=== PATIENT | male | born 1955 | race Caucasian/White ===

== ENCOUNTER → 2020-03-29 15:12 | Outpatient (BNVA) | payer BC, SELFPAY | PROVIDERS: PCP Internal Medicine; Visit Provider Internal Medicine | DX: Z76.89 Persons encountering health services in other specified circumstances (principal) ==

== ENCOUNTER → 2020-04-17 14:53 | Outpatient (REF) | payer BC, SELFPAY ==
--- NOTE | 2020-04-17 15:03 | CA_ITS ---
Transthoracic Echocardiogram Patient (Last, First, Middle): Ney George M Gender: Male Date of : 1955 Age: 64 Procedure Date: 04/17/2020 Procedure Type: Transthoracic Echocardiogram Location: OP Height: 170.18 cm Weight: 95.26 kg BSA: 2.06 m2 Heart Rate: bpm BP: 122 / 80 mmHg Cupola Liner Helper: Referring MD: Curt Martinez MD Symptoms: Z95.3 - Presence of xenogenic heart valve Study Quality: Technically Difficult ECG Rhythm: Sinus Conclusions: - The left ventricular systolic function is normal. The visually estimated ejection fraction is between 60-65%. - Based on history, bioprosthetic aortic valve. Appears to have normal function based on gradients. - There is a small loculated pericardial effusion overlying the right atrium. Findings Left Ventricle Normal left ventricular cavity size. There is mildly increased left ventricular wall thickness. The left ventricular systolic function is normal. The visually estimated ejection fraction is between 60-65%. Regional wall motion abnormalities can not be excluded due to suboptimal endocardial definition. Diastolic function is normal for age. Right Ventricle Normal right ventricular cavity size and systolic function. Atria The left atrium is mildly dilated. The right atrium is normal in size. Aortic Valve The prosthetic aortic valve appears to be functioning normally. The aortic valve was not well visualized. The peak aortic velocity is 2.27 m/s with a calculated peak gradient of 21 mmHg. The mean gradient is 11 mmHg. The aortic valve area is 2.02 cm2. By history, bioprosthetic aortic valve. No significant regurgitation. Mitral Valve The mitral valve appears normal. There is trace mitral valve regurgitation. There is no mitral valve stenosis. Pulmonic Valve The pulmonic valve was not well visualized. Tricuspid Valve Normal tricuspid valve structure. There is trace tricuspid valve regurgitation. The pulmonary artery systolic pressure is normal. Great Vessels The aorta was not well visualized. Venous The inferior vena cava is normal in size and collapses greater than 50% with inspiration. Pericardium/Pleural There is a small loculated pericardial effusion overlying the right atrium. There are no definitive echocardiographic findings of tamponade physiology. Prior Study Comparison Changes noted compared to prior study dated: 10/19/2019. s/p AVR Measurements 2D Linear Measurements IVSd: 1.28 0.6-0.9/0.6-1.0 cm LVIDd: 3.58 3.9-5.3/4.2-5.9 cm LVIDd Index: 1.74 2.4-3.2/2.2-3.1 cm/m2 LVIDs: 2.50 2.0-3.6 cm LVPWd: 1.29 0.7-1.1 cm Ao Root: 3.00 2.1-3.5 cm LA Diam: 3.90 2.7-3.8/3.0-4.0 cm LAIDs Index: 1.89 1.5-2.3 cm/m2 LV Mass: 194.19 67-162/88-224 g LV Mass Index: 94.27 43-95/49-115 g/m2 LVOT Diam: 2.00 3.0+(-)1.3 cm 2D Systolic Function EF 4C: 54.80 >55% EF 2C: 67.60 >55% Mitral Valve MV Pk E: 0.77 MV PK A: 0.97 MV Decel Time: 218.00 E/A: 0.80 E'Lateral: 15.50 E'Medial: 4.93 E/E' Med: 15.50 E/E' Lat: 4.90 PHT: 64.00 MVA PHT: 3.44 Decel Sheridan: 3.51 Aortic Valve AoV Pk Lit: 2.27 AoV Mn Lit: 1.55 AoV VTI: 0.48 AoV Pk Grad: 21.00 Aov Mn Grad: 11.00 RABIA Cont.VTI: 2.02 LVOT LVOT Pk Lit: 1.45 LVOT Mn Lit: 0.90 LVOT VTI: 0.31 LVOT Pk Grad: 8.00 LVOT Mn Grad: 4.00 LVOT Diam: 2.00 LVOT Area: 3.14 Diastolic Function MV Pk E: 0.77 MV Pk A: 0.97 E/A: 0.80 E'Medial: 4.93 E/E' Med: 15.50 E' Laterial: 15.50 E/E' Lat: 4.90 Tricuspid Valve TR Pk Lit: 2.05 TR Pk Grad: 17.00 RA Press: 3.00 RVSP: 20.00 Great Vessels Aorta Ao Root-2D: 3.00 2.0-3.7 cm Pulmonary Valve PV Pk Lit: 1.02 Peak PV Grad: 4.00 Updated in Other Vendor System with Status of Final Curt Martinez MD electronically signed on 04/18/2020 4:45:47 PM with status of Final
== END ==
LOC: HO.CARD 14:53
PROVIDERS: PCP Internal Medicine; Visit Provider Internal Medicine
DX: Z95.3 Presence of xenogenic heart valve (principal)
CPT/HCPCS: 93306

== ENCOUNTER → 2020-06-18 15:14 | Outpatient (BNVA) | payer BC, SELFPAY | PROVIDERS: PCP Internal Medicine; Visit Provider Internal Medicine ==

== ENCOUNTER 2020-09-17 12:50 | Outpatient (REF) | payer BC, SELFPAY ==
[2020-09-17 14:11] LABS: MANUAL DIFF FLAG NO
[2020-09-17 14:20] LABS: Glucose Urine UA NEG (NEG); Leukocyte Esterase Urine NEG (NEG); Nitrite Urine NEG (NEG); PH 6.5 (5.0-8.0); Urine Blood NEG (NEG); Urine Ketones NEG (NEG); Urine Protein TRACE MG/DL (NEG-TRACE)
[2020-09-17 14:22] LABS: Basophils Absolute Auto 0.1 X10*3/uL (0.0-0.2); Basophils Percent Auto 0.8 % (0-2); Eosinophils Absolute Auto 0.2 X10*3/uL (0.0-0.4); Eosinophils Percent Auto 3.3 % (0-4); Hematocrit 46.1 % (42-52); Hemoglobin 15.4 g/dl (14.0-18.0); Imm Gran Abs Auto 0.02 X10*3/uL (0.00-0.03); Imm Gran Pct Auto 0.3 % (0.0-0.4); Lymphocytes Percent Auto 29.9 % (20-40); Mean Corpuscular HGB Conc 33.4 g/dl (31.0-36.0); Mean Corpuscular Volume 89.7 fL (80-98); Mean Platelet Volume 11.5 fL (9.4-12.4); Monocytes Absolute Auto 0.7 X10*3/uL (0.1-1.2); Monocytes Percent Auto 10.3 % (2-11); Neutrophils Absolute Auto 3.7 X10*3/uL (2.0-8.3); Neutrophils Percent Auto 55.4 % (45-73); Platelet Count 192 X10*3/uL (160-400); Red Blood Count 5.14 X10*6/uL (4.60-5.80); Red Cell Distribution Width 12.6 % (11.0-16.0); White Blood Count 6.6 X10*3/uL (4.8-10.8)
[2020-09-17 14:25] LABS: Appearance Urine CLEAR; Color Urine YELLOW
[2020-09-17 14:29] LABS: Estimated Average Glucose 146 mg/dL; Hemoglobin A1c % 6.7 %
[2020-09-17 14:32] LABS: Alanine Aminotransferase 45 U/L (0-40); Albumin Level 4.3 g/dL (3.5-5.0); Alkaline Phosphatase 120 U/L (39-117); Anion Gap 13 (12-20); Aspartate Amino Transferase 32 U/L (5-37); Bilirubin Total 1.3 mg/dL (0.0-1.0); Blood Urea Nitrogen 12 mg/dL (9-16); Calcium 9.3 mg/dL (8.4-10.2); Carbon Dioxide 28 mmol/L (22-29); Chloride 105 mmol/L (96-108); Cholesterol 110 mg/dL; Estimated Glomerular Filt Rate > 60; Glucose Random 96 mg/dL (60-115); HDL Cholesterol 35 mg/dL; LDL Cholesterol Calculated 46 mg/dl; Potassium 3.6 mmol/L (3.3-5.1); Sodium 142 mmol/L (135-145); Total Protein 6.5 g/dL (6.5-8.0); Triglycerides 148 mg/dL
[2020-09-17 14:47] LABS: Microalbum/Creatinine Ratio Ur 154.1 ug/mg cr
[2020-09-17 14:54] LABS: Free T4 (Free Thyroxine) 1.02 ng/dL (0.71-1.85); Prostate Specific Antigen Scr 1.35 ng/mL (<0.05-4.0); Thyroid Stimulating Hormone 0.44 uIU/mL (0.32-4.0)
[2020-09-17 14:55] LABS: RBC Urine 0-2 /HPF (0); WBC Urine 0 /HPF (0-4)
[2020-09-17 14:56] LABS: Amorphous Sediment Urine TRACE /LPF
[2020-09-17 15:09] LABS: Folate 19.7 ng/mL (> or = 4.0); Vitamin B12 424 pg/mL (200-900)
== END 2020-09-17 12:51 | disposition home or self-care (01) ==
LOC: HO.LAB 12:50
PROVIDERS: PCP Internal Medicine; Visit Provider Internal Medicine
DX: I25.10 Atherosclerotic heart disease of native coronary artery without angina pectoris (principal); E11.65 Type 2 diabetes mellitus with hyperglycemia; E78.00 Pure hypercholesterolemia, unspecified
CPT/HCPCS: 36415; 80053; 80061; 81001; 82043; 82607; 82746; 83036; 84153; 84439; 84443; 85025

== ENCOUNTER 2020-09-25 16:57 | Outpatient (REF) | payer BC, SELFPAY ==
[2020-09-25 18:30] LABS: Anion Gap 14 (12-20); Blood Urea Nitrogen 18 mg/dL (9-16); Calcium 9.9 mg/dL (8.4-10.2); Carbon Dioxide 28 mmol/L (22-29); Chloride 105 mmol/L (96-108); Estimated Glomerular Filt Rate > 60; Glucose Random 75 mg/dL (60-115); Potassium 4.2 mmol/L (3.3-5.1); Sodium 143 mmol/L (135-145)
[2020-09-26 08:11] LABS: HBc Num1 0.05 S/CO (0.00-0.79); Hepatitis B Core Antibody Nonreactive (Nonreactive); ~Hepatitis B Surface Antibody NONREACTIVE (Nonreactive)
[2020-09-26 08:34] LABS: HBsAGNum1 0.18 S/CO (0.00-0.99); Hepatitis B Surface Antigen Negative (Negative); ~HepC Num1 0.07 S/CO (0.00-0.79); ~Hepatitis C Antibody Nonreactive (Nonreactive)
== END 2020-09-25 16:58 | disposition home or self-care (01) ==
LOC: HO.LAB 16:57
PROVIDERS: PCP Internal Medicine; Visit Provider Internal Medicine
DX: I10 Essential (primary) hypertension (principal); R79.89 Other specified abnormal findings of blood chemistry; R94.5 Abnormal results of liver function studies
CPT/HCPCS: 36415; 80048; 86704; 86706; 86803; 87340

== ENCOUNTER 2020-11-13 08:02 | Outpatient (REF) | payer BC, SELFPAY ==
--- NOTE | ~2020-11-13 | US_ITS ---
EXAMINATION: US ABDOMEN LIMITED CLINICAL INFORMATION: Elevated LFTs. COMPARISON: None TECHNIQUE: Real-time imaging of the right upper quadrant abdominal viscera. FINDINGS: PANCREAS: There is a 3 x 2.9 x 2.8 cm simple cyst in the head of the pancreas. The pancreas appears heterogeneous in echotexture. The main pancreatic duct does not appear dilated. LIVER: Liver echotexture is increased probably representing fatty infiltration. The liver is slightly enlarged. The liver contour is normal. No focal hepatic lesion. There is no intrahepatic biliary duct dilatation seen. GALLBLADDER: Normal. The gallbladder is physiologically distended without evidence of stones, sludge, polyps, wall thickening or pericholecystic fluid. COMMON BILE DUCT: Normal in caliber measuring 0.41 cm in diameter. RIGHT KIDNEY: There are multiple small echogenic foci in the right kidney questionable for small calcifications.. No hydronephrosis or focal parenchymal lesions. The kidney measures 12.1 cm in maximum dimension. FREE FLUID: None. US/US abdomen limited IMPRESSION: 3 cm simple appearing cyst in the head of the pancreas. Pancreas appears heterogeneous. Enlarged echogenic liver probably representing fatty infiltration. Question small right renal calcifications.
== END 2020-11-13 08:03 | disposition home or self-care (01) ==
LOC: HO.US 08:02
PROVIDERS: Visit Provider Internal Medicine
DX: R79.89 Other specified abnormal findings of blood chemistry (principal)
CPT/HCPCS: 76705

== ENCOUNTER 2020-11-26 20:33 | Emergency (ER) | payer BC, SELFPAY ==
--- NOTE | ~2020-11-26 | CT_ITS ---
EXAMINATION: CT HEAD WITHOUT CONTRAST CLINICAL INFORMATION: Fall COMPARISON: CT head 01/29/2008 TECHNIQUE: Contiguous axial imaging was performed from the skull base to vertex without intravenous administration of contrast. Coronal and sagittal reformatted images are performed at the CT scanner. [This CT examination was performed using dose optimization techniques as appropriate, variously including the following: *Automated exposure control *Adjustment of mA and/or kV according to patient size (this includes techniques or standardized protocols for targeted exams where dose is matched to indication/reason for exam; i.e. extremities or head) *Use of iterative reconstruction technique] DLP: 727 mGy-cm. FINDINGS: There is no evidence of acute intracranial hemorrhage or territorial infarction. No abnormal mass-effect or midline shift is seen. Sanders to white matter differentiation is well preserved. No extra-axial fluid collections are identified. The ventricles are normal in size. There is no abnormal attenuation within the brain parenchyma. There is no osseous abnormality. The mastoid air cells and visualized portions of the paranasal sinuses are well-aerated. CT/CT head/brain wo con IMPRESSION: No acute intracranial pathology.
--- NOTE | ~2020-11-26 | XR_ITS ---
EXAMINATION: XR LUMBOSACRAL SPINE CLINICAL INFORMATION: Fall. COMPARISON: Lumbar spine 04/03/2016 TECHNIQUE: Three views of the lumbosacral spine. FINDINGS: No fracture. Lumbar vertebrae have normal height and normal alignment. No spondylolysis or spondylolisthesis. There is multilevel degenerative spondylosis. There are vertebral endplate spurs and facet joint arthrosis similar to prior study of 04/03/2016. There are vascular calcifications of the aorta without aneurysm. There is no radiopaque urinary calculus. Nonobstructive bowel pattern. XR/XR lumbar spine 2-3V IMPRESSION: No acute abnormality lumbar spine. Degenerative spondylosis of lumbar spine.
[2020-11-26 20:40] VITALS: BP 181/83; PULSE 74; RESP 18; TEMP 36.7; O2SAT 96; BMI 32.2
--- NOTE | 2020-11-26 23:07 | ED_ITS ---
HPI - Fall General Chief Complaint: Fall Stated Complaint: fall Time Seen by Provider: 11/26/20 23:07 Source: patient Mode of arrival: ambulatory Limitations: no limitations History of Present Illness HPI Narrative: patient was pushing a bike slipped and fell landed on his head and the right side complaining of pain on the left back mild headache no nausea no vomiting no loss of consciousness patient is on Plavix able to ambulate to the ER no bladder or bowel involvement no paresthesia no significant pain in the back in past Related Data Home Medications Medication Instructions Recorded Confirmed aspirin 81 mg tablet,delayed 81 mg PO DAILY 03/19/20 09/25/20 release atorvastatin 80 mg tablet 80 mg PO DAILY 03/19/20 09/25/20 melatonin 3 mg capsule 3 mg PO BEDTIME PRN 03/19/20 09/25/20 multivitamin 1 tab PO DAILY 03/19/20 09/25/20 Previous Rx's Medication Instructions Recorded amlodipine 10 mg tablet 10 mg PO DAILY #90 tab 03/15/20 metoprolol tartrate 50 mg tablet 50 mg PO BID #180 tab 06/18/20 blood pressure monitor #1 ea 06/20/20 glimepiride 4 mg tablet 4 mg PO QAM #90 tab 07/05/20 alprazolam 0.25 mg tablet 0.25 mg PO BID #30 tab 09/25/20 clopidogrel 75 mg tablet 75 mg PO DAILY #90 tab 09/25/20 lisinopril 40 mg tablet 40 mg PO DAILY #90 tab 09/25/20 metformin 1,000 mg tablet 1,000 mg PO BID 90 Days #180 tab 10/03/20 sertraline 25 mg tablet 25 mg PO DAILY #90 tab 10/11/20 cyclobenzaprine 10 mg PO Q8H #20 tab 11/27/20 oxycodone 5 mg PO Q6H PRN #20 tab 11/27/20 Allergies Allergy/AdvReac Type Severity Reaction Status Date / Time Influenza Virus Vaccines Allergy Intermediate Unknown Verified 11/26/20 20:39 Review of Systems Review of Systems: Yes all other systems are reviewed and are negative [facility] Past Medical History Medical History Anxiety and depression Aortic stenosis Atherosclerotic cardiovascular disease CAD (coronary artery disease) Essential hypertension Glaucoma Hypercholesterolemia Obesity Obstructive sleep apnea Tobacco abuse Type 2 diabetes mellitus with hyperglycemia Surgical History Aortic valve replaced History of lumbar surgery Status post aortic valve replacement with bioprosthetic valve Status post aorto-coronary artery bypass graft Family History Family History Father CVD (cardiovascular disease) Cerebral hemorrhage Mother Medical history unknown Social History Social History Years Smoked: stopped 01/2020 Advance Directives: No Advance Directives Information Provided: No Physical Exam Vital Signs: Vital Signs: Last Vital Signs Temp 98.1 F 11/26/20 20:40 Pulse 68 11/26/20 23:10 Resp 16 11/26/20 23:10 BP 190/86 H 11/26/20 23:10 Pulse Ox 96 11/26/20 23:10 Body Mass Index 32.2 Appearance: Alert. Oriented X3. No acute distress. Eyes: PERRLA, No Nystagmus HEENT: Pharynx normal. Oral Mucosa moist soft tissue swelling right forehead Neck: Normal inspection. Neck supple. CVS: Normal heart rate and rhythm. Pulses normal. Respiratory: No respiratory distress. Equal air entry bilateral, no wheezing/rales/rhonchi Abdomen: Soft and nontender. Bowel sounds are present, no mass palpable, no CVA tenderness Skin: Skin warm and dry. Normal skin color. Normal skin turgor. Extremities: No lower extremity edema. No calf tenderness abrasion right forearm back: diffuse lumbar paraspinal tenderness specially on the left side no focal spinal tenderness no deformity good range of movement no saddle sensory loss, SLR negative bilateral Neuro: Oriented X 3. No motor deficit. No sensory deficit.No cerebellar signs , cranial nerves II-XII intact MDM - Fall MDM Narrative Medical decision making narrative: patient's CT scan head is negative lumbar spine x-ray also negative patient feeling better after oxycodone and Flexeril discharge him home Discharge Plan Discharge Clinical Impression: Minor closed head injury Acute lumbar myofascial strain Qualifiers: Encounter type: initial encounter Qualified Code(s): S39.012A - Strain of muscle, fascia and tendon of lower back, initial encounter Patient Disposition: Home, Self-Care Instructions: Head Injury (ED), Acute Low Back Pain (ED) Additional Instructions: rest at home Pain medication as prescribed follow with PCP if not better Prescriptions: New cyclobenzaprine 10 mg tablet 10 mg PO Q8H Qty: 20 RF: 0 oxycodone 5 mg tablet 5 mg PO Q6H PRN (Reason: Pain (Scale Score 7-10)) Qty: 20 RF: 0 No Action amlodipine 10 mg tablet 10 mg PO DAILY Qty: 90 RF: 3 glimepiride 4 mg tablet 4 mg PO QAM Qty: 90 RF: 2 metformin 1,000 mg tablet 1,000 mg PO BID 90 Days Qty: 180 RF: 1 sertraline 25 mg tablet 25 mg PO DAILY Qty: 90 RF: 3 aspirin [Adult Aspirin Regimen] 81 mg tablet,delayed release (DR/EC) 81 mg PO DAILY RF: 0 multivitamin Tablet 1 tab PO DAILY RF: 0 melatonin 3 mg capsule 3 mg PO BEDTIME PRNRF: 0 atorvastatin 80 mg tablet 80 mg PO DAILY RF: 0 lisinopril 40 mg tablet 40 mg PO DAILY Qty: 90 RF: 2 clopidogrel 75 mg tablet 75 mg PO DAILY Qty: 90 RF: 2 alprazolam 0.25 mg tablet 0.25 mg PO BID Qty: 30 RF: 0 metoprolol tartrate 50 mg tablet 50 mg PO BID Qty: 180 RF: 4 (DME) blood pressure monitor Kit See Rx Instructions .ROUTE .MEDSUPPLY Qty: 1 RF: 0
[2020-11-26 23:10] VITALS: BP 190/86; PULSE 68; RESP 16; O2SAT 96
[2020-11-26] MEDS: oxyCODONE HCl Immed Release 5 MG TABLET 10 MG PO (23:21)
[2020-11-26] MEDS: Cyclobenzaprine HCl 10 MG TABLET PO (23:21)
[2020-11-27 00:50] VITALS: BP 168/99; PULSE 75; RESP 16; O2SAT 96
--- NOTE | 2020-11-27 01:02 | PC.NURSE ---
PT AMBULATORY WITH A SLOW STEADY GAIT, OBVIOUS DISCOMFORT TO LOWER BACK. PT HAS SLIGHT ABRASION TO RIGHT FOREHEAD AND LOWER RIGHT ARM. PT UNDERSTANDS TO REFRAIN FROM DRIVING AND ALCOHOL CONSUMPTION WHILE ON RX MEDICATIONS.
== END 2020-11-27 01:03 | disposition home or self-care (01) ==
PROVIDERS: Emergency Provider Internal Medicine; PCP Internal Medicine
DX: S39.012A Strain of muscle, fascia and tendon of lower back, initial encounter (principal); S09.90XA Unspecified injury of head, initial encounter; I10 Essential (primary) hypertension; E11.9 Type 2 diabetes mellitus without complications; I35.0 Nonrheumatic aortic (valve) stenosis; I25.10 Atherosclerotic heart disease of native coronary artery without angina pectoris; Z79.02 Long term (current) use of antithrombotics/antiplatelets; Z79.82 Long term (current) use of aspirin; Z79.899 Other long term (current) drug therapy; W01.0XXA Fall on same level from slipping, tripping and stumbling without subsequent striking against object, initial encounter; Y93.9 Activity, unspecified; Y92.9 Unspecified place or not applicable; Y99.9 Unspecified external cause status
CPT/HCPCS: 70450; 72100; 99284

== ENCOUNTER → 2021-01-23 14:54 | Outpatient (BNVA) | payer BC, SELFPAY | PROVIDERS: PCP Internal Medicine; Referring Provider Internal Medicine; Visit Provider Internal Medicine ==

== ENCOUNTER → 2021-04-03 12:50 | Outpatient (BNVA) | payer OTHER, SELFPAY | PROVIDERS: PCP Internal Medicine; Visit Provider Physician Assistant | DX: L24.5 Irritant contact dermatitis due to other chemical products (principal); L03.114 Cellulitis of left upper limb; L03.113 Cellulitis of right upper limb; L03.011 Cellulitis of right finger | CPT/HCPCS: 99203 ==

== ENCOUNTER → 2021-04-05 11:47 | Outpatient (BNVA) | payer OTHER, SELFPAY | PROVIDERS: PCP Internal Medicine; Visit Provider Physician Assistant | DX: L24.5 Irritant contact dermatitis due to other chemical products (principal); L03.114 Cellulitis of left upper limb; L03.113 Cellulitis of right upper limb | CPT/HCPCS: 99213 ==

== ENCOUNTER 2021-05-04 09:52 | Emergency (ER) | payer BC, SELFPAY ==
--- NOTE | ~2021-05-04 | XR_ITS ---
EXAMINATION: XR CHEST CLINICAL INFORMATION: Cough COMPARISON: None TECHNIQUE: Frontal view of the chest was obtained. FINDINGS: No significant abnormality is noted involving the heart, lungs, mediastinum, bony thorax or soft tissues. XR/XR chest 1V IMPRESSION: Unremarkable examination.
[2021-05-04 10:15] VITALS: BP 204/98; PULSE 97; RESP 18; TEMP 36.9; O2SAT 96; BMI 32.1
[2021-05-04 10:48] LABS: COVID-19 Test Negative (Negative); IDNOW Serial# 9DD0AD1C
[2021-05-04 12:17] VITALS: BP 198/96; PULSE 86
--- NOTE | 2021-05-04 12:33 | ED.URI ---
HPI - URI/Sore Throat General Chief Complaint: Upper Respiratory Symptoms Stated Complaint: sore throat congested Time Seen by Provider: 05/04/21 10:29 Source: patient Mode of arrival: ambulatory Limitations: no limitations History of Present Illness HPI Narrative: 65-year-old male who has a past medical history of obesity and is a smoker with multiple medical problems which include hypercholesterolemia, aortic stenosis with bioprosthetic valve, coronary artery disease, anxiety and depression, struck the sleep apnea, diabetes controlled and hypertension who denies being on any blood thinner since his prosthetic valve surgery presenting with complaints of URI symptoms over the past few days worse today. Reports intermittent headaches, nasal congestion/ rhinorrhea / sinus pain, itchy throat and a productive cough with yellow sputum production. Reports associated body aches. He was noted to be hypertensive in triage 200/98 and he reports that he ran out of his all his medications yesterday morning and his has yet to pick them up although they plan on picking him up right after he gets discharged from here. He denies any measured fevers, dizziness, neck pain /stiffness, changes in vision, nausea/ vomiting / diarrhea, abdominal pain, constipation, dysuria, hematuria, palpitations, lower extremity edema or calf tenderness, recent travel or sick contacts, paresthesias, focal weakness, increased urinary frequency / urgency or any other symptoms complaints or concerns at this time. Reports that he is vaccinated with 2 COVID vaccine and is awaiting for his to schedule his booster vaccine. MD elicited complaint: cough, sore throat, rhinorrhea, nasal congestion and sinus pain Pertinent past history: other ( see above) Onset (ago): day(s) ( past few days worse today) Consistency: constant and progressively worsening Severity: mild Description of mucous: clear, watery and yellow Able to tolerate fluids by mouth: Yes Exacerbating factors: swallowing Relieving factors: nothing Associated symptoms: myalgias, headache, rhinorrhea, nasal congestion, sore throat and cough Treatments prior to arrival: none Related Data Home Medications Medication Instructions Recorded Confirmed aspirin 81 mg tablet,delayed 81 mg PO DAILY 03/19/20 01/23/21 release (Adult Aspirin Regimen) melatonin 3 mg capsule 3 mg PO BEDTIME PRN 03/19/20 01/23/21 multivitamin 1 tab PO DAILY 03/19/20 01/23/21 Previous Rx's Medication Instructions Recorded blood pressure monitor #1 ea 06/20/20 alprazolam 0.25 mg tablet 0.25 mg PO BID #30 tab 09/25/20 lisinopril 40 mg tablet 40 mg PO DAILY #90 tab 09/25/20 sertraline 25 mg tablet 25 mg PO DAILY #90 tab 10/11/20 cyclobenzaprine 10 mg tablet 10 mg PO Q8H #20 tab 11/27/20 oxycodone 5 mg tablet 5 mg PO Q6H PRN #20 tab 11/27/20 carvedilol 12.5 mg tablet (Coreg) 12.5 mg PO BID 90 Days #180 tab 01/23/21 amlodipine 10 mg tablet 10 mg PO DAILY #90 tab 03/10/21 glimepiride 4 mg tablet 4 mg PO QAM #90 tab 04/01/21 metformin 1,000 mg tablet 1,000 mg PO BID 90 Days #180 tab 04/01/21 atorvastatin 80 mg tablet 80 mg PO DAILY 90 Days #90 tab 05/01/21 amoxicillin 875 mg-potassium 1 tab PO BID 10 Days #20 tab 05/04/21 clavulanate 125 mg tablet (Augmentin) codeine 10 mg-guaifenesin 100 mg/5 5 ml PO Q6H PRN #120 ml 05/04/21 mL oral liquid (Guaifenesin AC) Allergies Allergy/AdvReac Type Severity Reaction Status Date / Time Influenza Virus Vaccines Allergy Intermediate Unknown Verified 05/04/21 10:15 Review of Systems Review of Systems: Constitutional : positive fatigue/malaise, No Weight loss, No Fever, No Chills, No Night Sweats ENT/Mouth : positive sore throat/nasal congestion / rhinorrhea/ sinus pain, No Hearing loss, No Ear Pain, No Hoarseness, No Swallowing Difficulty Eyes: No Eye Pain, No Swelling, No Redness, No Foreign Body, No Discharge, No Vision Changes Cardiovascular : No Chest Pain, No SOB, No Dyspnea on Exertion, No Orthopnea, No Edema, No Palpitations Respiratory : positive Cough, positive Sputum, No Wheezing, No Smoke Exposure, No Dyspnea Gastrointestinal : No Nausea, No Vomiting, No Diarrhea, No Constipation, No abdominal Pain, No Hematochezia, No Melena Genitourinary : no irregular bleeding, No Dysuria, No Urinary Frequency, No Hematuria, No Urinary Incontinence, No Urgency, No Flank Pain, No Urinary Flow Changes, No Hesitancy Musculoskeletal : No joint pain, positive Myalgias, No Joint Swelling Skin : No Skin Lesions, No rash Neuro : No Weakness, No Numbness, No Paresthesias, No Loss of Consciousness, No Dizziness, No Headache Psych : No Anxiety/Panic, No Depression, No SI/HI/AH/VH, No Social Issues, Heme/Lymph: No Bruising, No Bleeding,No Lymphadenopathy Endocrine : No Polyuria, No Polydipsia, No Temperature Intolerance Yes all other systems are reviewed and are negative [facility] Past Medical History Attestation statement: The following information was validated with the patient. Medical History Anxiety and depression Aortic stenosis Atherosclerotic cardiovascular disease CAD (coronary artery disease) Essential hypertension Glaucoma Hypercholesterolemia Obesity Obstructive sleep apnea Tobacco abuse Type 2 diabetes mellitus with hyperglycemia Surgical History Aortic valve replaced History of lumbar surgery Status post aortic valve replacement with bioprosthetic valve Status post aorto-coronary artery bypass graft Family History Family History Father CVD (cardiovascular disease) Cerebral hemorrhage Mother Medical history unknown Social History Social History Housing: House Patient Tobacco Use Status: Current everyday Tobacco user Cigarette Packs Per Day: 1 Years Smoked: stopped 01/2020 e-Cigarette/Vaping Use: Never Used Second Hand Smoke Exposure: No Advance Directives: No Advance Directives Information Provided: Yes Current occupational status: employed Physical Exam Vital Signs: Vital Signs: Last Vital Signs Temp 98.5 F 05/04/21 10:15 Pulse 86 05/04/21 12:50 Resp 18 05/04/21 10:15 BP 197/96 H 05/04/21 12:50 Pulse Ox 96 05/04/21 10:15 BMI result Body Mass Index 32.1 vital signs have been reviewed as normal and appeared to be correct. Blood pressure Hypertensive 198/96 Heart rate normal. Respiration rate normal. Temperature normal. Oxygen saturation normal. Appearance: Alert. Oriented X3. No acute distress. Head: Normal external exam. Normocephalic. Atraumatic. Eyes: PERRLA. EOMI. Conjunctiva and sclera normal. Eyelids normal. ENT: EAC normal. TM's Normal. Pharynx normal. Uvula midline. Moist mucous membranes. No trismus noted. No drooling noted. No muffled voice noted. Neck: Normal inspection. Neck supple. FROM. No adenopathy. Thyroid Normal. No meningeal signs. No neck mass noted. CVS: Normal heart rate and rhythm. Heart sound normal. Pulses normal throughout. No murmurs/rales/gallops. Respiratory: No respiratory distress. Painless inspiration. Breath sounds normal. No wheezes/rales/rhonchi noted. Chest nontender. No accessory muscle usage noted or decreased air movement noted. Abdomen: Soft and nontender. Bowel sounds normal in all 4 quadrants. No distention noted. No organomegaly noted. No visible injury noted. Back: Full range of motion noted. No rashes/lesion/induration/fluctuance or signs of infection noted. Skin: Skin warm and dry. Normal skin color. Normal skin turgor. No rashes/lesions/lacerations noted. Extremities: No lower extremity edema. no calf tenderness is noted. Extremities exhibit normal range of motion. Extremities nontender. Neuro: Oriented X 3. No motor deficit. No sensory deficit. Reflexes normal. Normal steady gait. No focal neuro deficits noted. Vascular: + radial pulses/+ 2 distal pedal pulses/+2 dorsalis pedis b/l. Normal cap refill. No cyanosis noted to upper extremity nails and lower extremity toes nails. Course Course Course Narrative: - 65-year-old male who has a past medical history of obesity and is a smoker with multiple medical problems which include hypercholesterolemia, aortic stenosis with bioprosthetic valve, coronary artery disease, anxiety and depression, struck the sleep apnea, diabetes controlled and hypertension who denies being on any blood thinner since his prosthetic valve surgery presenting with complaints of URI symptoms over the past few days worse today. Reports intermittent headaches, nasal congestion/ rhinorrhea / sinus pain, itchy throat and a productive cough with yellow sputum production. Reports associated body aches. He was noted to be hypertensive in triage 200/98 and he reports that he ran out of his all his medications yesterday morning and his has yet to pick them up although they plan on picking him up right after he gets discharged from here. Patient denies any cardiac-related complaints. We will give the patient his metformin and his amlodipine, carvedilol and lisinopril as patient did not take them this morning and he will take the rest of the medications once he gets discharged that his just picked up per the patient. He is negative for COVID. CXR negative. Will DC home with antibiotics for sinus infection instructions return if any new or worsening symptoms to follow up with primary care provider and to have repeat COVID test if his symptoms persist despite taking the antibiotics for sinus infection. Patient understands agrees with this plan. MDM - URI/Sore Throat Medical Records Attestation: I reviewed the patient's medical records. Lab Data Attestation: I reviewed the patient's lab results. Labs: Lab Results 05/04/21 Range/Units 10:08 COVID-19 (JENNY) Negative (Negative) COVID-19 Clin Com See Note Imaging Data Chest x-ray: Attestation: I personally reviewed and interpreted this imaging study as follows: Radiologist's impression: FINDINGS: No significant abnormality is noted involving the heart, lungs, mediastinum, bony thorax or soft tissues. XR/XR chest 1V IMPRESSION: Unremarkable examination. Discharge Plan Discharge Clinical Impression: Sinusitis, Hypertension, Elevated blood pressure reading Patient Disposition: Home, Self-Care Instructions: Sinusitis (ED) Prescriptions: New amoxicillin-pot clavulanate [Augmentin] 875-125 mg tablet 1 tab PO BID 10 Days Qty: 20 RF: 0 codeine-guaifenesin [Guaifenesin AC] 10-100 mg/5 mL liquid 5 ml PO Q6H PRN (Reason: cold symptoms) Qty: 120 RF: 0 No Action sertraline 25 mg tablet 25 mg PO DAILY Qty: 90 RF: 3 amlodipine 10 mg tablet 10 mg PO DAILY Qty: 90 RF: 3 metformin 1,000 mg tablet 1,000 mg PO BID 90 Days Qty: 180 RF: 2 glimepiride 4 mg tablet 4 mg PO QAM Qty: 90 RF: 2 atorvastatin 80 mg tablet 80 mg PO DAILY 90 Days Qty: 90 RF: 2 cyclobenzaprine 10 mg tablet 10 mg PO Q8H Qty: 20 RF: 0 oxycodone 5 mg tablet 5 mg PO Q6H PRN (Reason: Pain (Scale Score 7-10)) Qty: 20 RF: 0 aspirin [Adult Aspirin Regimen] 81 mg tablet,delayed release (DR/EC) 81 mg PO DAILY RF: 0 multivitamin Tablet 1 tab PO DAILY RF: 0 melatonin 3 mg capsule 3 mg PO BEDTIME PRNRF: 0 lisinopril 40 mg tablet 40 mg PO DAILY Qty: 90 RF: 2 alprazolam 0.25 mg tablet 0.25 mg PO BID Qty: 30 RF: 0 (DME) blood pressure monitor Kit See Rx Instructions .ROUTE .MEDSUPPLY Qty: 1 RF: 0 carvedilol [Coreg] 12.5 mg tablet 12.5 mg PO BID 90 Days Qty: 180 RF: 4 Referrals: Po,Tara Cuadra MD [Primary Care Provider] - 2 days Stand Alone Forms: Work/School Release Print Language: Citizen Of [place]
[2021-05-04 12:48] VITALS: BP 197/96; PULSE 86
[2021-05-04] MEDS: amLODIPine Besylate 10 MG TABLET PO (12:48)
[2021-05-04 12:49] VITALS: BP 197/96; PULSE 86
[2021-05-04] MEDS: lisinopriL 40 MG TABLET PO (12:49)
[2021-05-04 12:50] VITALS: BP 197/96; PULSE 86
[2021-05-04] MEDS: carvediloL 12.5 MG TABLET PO (12:50)
[2021-05-04] MEDS: metFORMIN HCl ER 500 MG TAB.ER.24H 1000 MG PO (12:57)
== END 2021-05-04 13:17 | disposition home or self-care (01) ==
PROVIDERS: Emergency Provider Emergency Medicine; PCP Internal Medicine
DX: J32.9 Chronic sinusitis, unspecified (principal); I10 Essential (primary) hypertension; Z20.822 Contact with and (suspected) exposure to COVID-19; J02.9 Acute pharyngitis, unspecified; F17.200 Nicotine dependence, unspecified, uncomplicated; E11.9 Type 2 diabetes mellitus without complications; Z79.82 Long term (current) use of aspirin; Z79.899 Other long term (current) drug therapy
CPT/HCPCS: 36415; 71045; 87635; 99283; 99284

== ENCOUNTER 2021-06-20 13:07 | Outpatient (REF) | payer BC, SELFPAY ==
[2021-06-20 13:17] LABS: COVID-19 Test Positive (Negative)
== END 2021-06-20 13:08 | disposition home or self-care (01) ==
LOC: HO.LAB 13:07
PROVIDERS: Visit Provider Internal Medicine
DX: Z20.822 Contact with and (suspected) exposure to COVID-19 (principal)
CPT/HCPCS: 87635; C9803

== ENCOUNTER → 2021-07-24 15:02 | Outpatient (BNVA) | payer BC, SELFPAY | PROVIDERS: PCP Internal Medicine; Referring Provider Internal Medicine; Visit Provider Internal Medicine | DX: I10 Essential (primary) hypertension (principal); I25.10 Atherosclerotic heart disease of native coronary artery without angina pectoris; E11.8 Type 2 diabetes mellitus with unspecified complications; Z95.1 Presence of aortocoronary bypass graft; Z95.3 Presence of xenogenic heart valve | CPT/HCPCS: 93005 ==

== ENCOUNTER 2021-09-28 09:54 | Observation (INO) | payer BC, SELFPAY ==
[2021-09-28] VITALS (10 sets, daily range): BP systolic 145–187; BP diastolic 72–82; PULSE 57–64; RESP 15–20; TEMP 36.4–37.1; O2SAT 92–98; BMI 33.3
--- NOTE | 2021-09-28 | ECG_ITS ---
Test Reason : cp Blood Pressure : / mmHG Vent. Rate : 061 BPM Atrial Rate : 061 BPM P-R Int : 192 ms QRS Dur : 104 ms QT Int : 420 ms P-R-T Axes : 031 056 097 degrees QTc Int : 422 ms Normal sinus rhythm Nonspecific T wave abnormality Cannot rule out anteroseptal infarct Abnormal ECG No previous ECGs available Referred By: Curt Martinez Electronically Signed By:Louis Viveros
--- NOTE | ~2021-09-28 | XR_ITS ---
EXAMINATION: XR CHEST CLINICAL INFORMATION: Chest pain. COMPARISON: 05/04/2021 TECHNIQUE: Frontal view of the chest was obtained. FINDINGS: Diffuse increased peribronchial wall thickening is seen. No definitive pleural effusions. The heart and mediastinal structures are unremarkable. Multilevel sternotomy wires are intact. XR/XR chest 1V IMPRESSION: Diffuse increased peribronchial wall thickening bilaterally is nonspecific, but can be seen in small airways disease and viral etiologies. No focal consolidation.
--- NOTE | ~2021-09-28 | NM_ITS ---
Myocardial perfusion study Indication: Chest pain to evaluate for myocardial ischemia Technique: The patient was brought in for a Lexiscan perfusion study on 09/30/2021. Patient performed low-level exercise and was injected 0.4 mg of Lexiscan intravenously. Within a minute of injection, 35 mCi of sestamibi was given intravenously. Images were obtained using the SPECT gamma camera interlaced with the gating device. Images were obtained in supine position. Resting perfusion study was performed on 10/01/2021. Patient was administered 35 mCi of sestamibi intravenously at rest. Images were then obtained in supine position. Images obtained with and without CT attenuation. Total DLP 119 mGy-cm. Images were processed with the software and compared side to side in short axis, horizontal long axis and vertical long axis views. Findings: Both resting and stress perfusion study show subdiaphragmatic uptake interfering with inferior wall uptake. The stress perfusion study showed non attenuated images show minimally reduced uptake in the inferior wall of the LV myocardium with some thinning. There is also mildly reduced uptake in the basal and mid lateral wall of the LV myocardium. Attenuated corrected images show mildly reduced uptake in the basal and mid lateral wall of the LV myocardium. The gated study shows normal LV systolic function with visually estimated LVEF of greater than 55%. LV cavity is normal in size. The gated study shows normal systolic wall thickening and contraction of segments. Resting study shows both attenuated and not attenuated corrected images show improved uptake in the basal and mid lateral wall of the LV myocardium.. Gating at rest reveals normal systolic wall motion with ejection fraction at 58%. The findings are consistent with possible mild intensity basal and mid lateral wall ischemia.. NM/NM nakia perf SPECT rest & str Impression: 1. Myocardial perfusion imaging study shows mild intensity basal and mid lateral wall ischemia 2. Gated LVEF is 58% 3. Transient ischemic dilatation not present EKG is nondiagnostic for ischemia
--- NOTE | 2021-09-28 10:16 | ED.CHESTPAIN ---
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) resolved took 4 baby aspirin) Timing of current episode: now resolved Prior episodes: Yes Onset: during rest and during exertion Pain location: substernal, left chest and right chest Pain radiation: left arm Severity: moderate Quality: heaviness (pressure) Relieving factors: other (time and aspirin he states usually helps) Exacerbating factors: other (he states it just happens) Treatment prior to arrival: aspirin (324) Related Data Home Medications Medication Instructions Recorded Confirmed aspirin 81 mg tablet,delayed 81 mg PO DAILY 03/19/20 08/26/21 release (Adult Aspirin Regimen) melatonin 3 mg capsule 3 mg PO BEDTIME PRN 03/19/20 08/26/21 Previous Rx's Medication Instructions Recorded blood pressure monitor #1 ea 06/20/20 lisinopril 40 mg tablet 40 mg PO DAILY #90 tab 09/25/20 amlodipine 10 mg tablet 10 mg PO DAILY #90 tab 03/10/21 glimepiride 4 mg tablet 4 mg PO QAM #90 tab 04/01/21 metformin 1,000 mg tablet 1,000 mg PO BID 90 Days #180 tab 04/01/21 atorvastatin 80 mg tablet 80 mg PO DAILY 90 Days #90 tab 05/01/21 sertraline 50 mg tablet 50 mg PO DAILY 90 Days #90 tab 05/20/21 carvedilol 25 mg tablet 25 mg PO BID 15 Days #30 tab 08/18/21 albuterol sulfate 90 mcg/actuation 2 puff INHALATION QID PRN #8.5 g 08/26/21 aerosol inhaler (ProAir HFA) alprazolam 0.25 mg tablet 0.25 mg PO BID PRN 90 Days #90 tab 08/26/21 hydralazine 50 mg tablet 50 mg PO QID 90 Days #360 tab 08/26/21 Allergies Allergy/AdvReac Type Severity Reaction Status Date / Time Influenza Virus Vaccines Allergy Intermediate Unknown Verified 08/26/21 16:34 Review of Systems Review of Systems: Constitutional : No Weight loss, No Fever, No Chills ENT/Mouth : No sore throat, No Rhinorrhea Eyes: No Eye Pain, No Swelling Cardiovascular : pos Chest Pain, no SOB, no Dyspnea on Exertion, No Orthopnea, No Edema, No Palpitations Respiratory : No Cough, No Sputum Gastrointestinal : no Nausea, No Vomiting, No Diarrhea, No abdominal Pain, No Hematochezia, No Melena Genitourinary : No Dysuria, No Urinary Frequency Musculoskeletal : No joint pain, No Myalgias, No Joint Swelling Skin : No Skin Lesions, No rash Neuro : No Weakness, No Numbness, No Dizziness, No Headache Psych : No Anxiety/Panic, No Depression Heme/Lymph: No Bruising, No Lymphadenopathy Endocrine : No Polyuria, No Polydipsia All other systems reviewed and are negative [facility] Past Medical History Attestation statement: The following information was validated with the patient. Medical History Aortic stenosis Atherosclerotic cardiovascular disease CAD (coronary artery disease) Essential hypertension Glaucoma Hypercholesterolemia Obesity Obstructive sleep apnea Tobacco abuse Type 2 diabetes mellitus with hyperglycemia Surgical History Aortic valve replaced History of lumbar surgery Status post aortic valve replacement with bioprosthetic valve Status post aorto-coronary artery bypass graft Family History Family History Father CVD (cardiovascular disease) Cerebral hemorrhage Mother Medical history unknown Social History Social History Housing: House Patient Tobacco Use Status: Current everyday Tobacco user Cigarette Packs Per Day: 1 Years Smoked: stopped 01/2020 e-Cigarette/Vaping Use: Never Used Second Hand Smoke Exposure: No Advance Directives: No Advance Directives Information Provided: Yes Current occupational status: employed Cognitive needs: No Hearing needs: No Vision needs: Yes (Glasses) Physical Exam Vital Signs: Vital Signs: Last Vital Signs Temp 97.6 F 09/28/21 13:55 Pulse 63 09/28/21 13:55 Resp 18 09/28/21 13:55 BP 174/75 H 09/28/21 13:55 Pulse Ox 92 09/28/21 13:55 BMI result Body Mass Index 33.3 Appearance: Alert. Oriented X3. No acute distress. Eyes: Pupils equal, round and reactive to light. ENT: Pharynx normal. Neck: Normal inspection. Neck supple. CVS: Normal heart rate and rhythm. Pulses normal. Respiratory: No respiratory distress. Breath sounds normal. Abdomen: Soft and nontender. Skin: Skin warm and dry. Normal skin color. Normal skin turgor. Extremities: 2+ pitting lower extremity edema. No calf ttp Neuro: Oriented X 3. No motor deficit. No sensory deficit. 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 MDM - Chest Pain MDM Narrative Medical decision making narrative: 65 yo male with hx of aortic stenosis s/p bioprosthetic VR, HTN, HLD, 2V CAD LAD and RCA, here with 1 month of chest pain but no associated symptoms cannot describe with precipitates the events but time and aspirin resolve them. 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 BP stable levels. Lab Data Result diagrams: 09/28/21 10:42 09/28/21 10:42 Labs: Lab Results 09/28/21 09/28/21 09/28/21 Range/Units 10:42 10:42 10:42 WBC 5.8 (4.8-10.8) X10*3/uL RBC 4.59 L (4.60-5.80) X10*6/uL Hgb 14.0 (14.0-18.0) g/dl Hct 41.2 L (42.0-52.0) % MCV 89.8 (80.0-98.0) fL MCH 30.5 (27.0-33.0) pg MCHC 34.0 (31.0-36.0) g/dl RDW 12.3 (11.0-16.0) % Plt Count 164 (160-400) X10*3/uL MPV 11.2 (9.4-12.4) fL Immature Gran % (Auto) 0.3 (0.0-0.4) % Neut % (Auto) 60.6 (45-73) % Lymph % (Auto) 25.2 (20-40) % Bound[place] % (Auto) 10.6 (2-11) % Eos % (Auto) 2.6 (0-4) % Baso % (Auto) 0.7 (0-2) % Lymph # (Auto) 1.5 (1.2-4.9) X10*3/uL [place] # (Auto) 0.6 (0.1-1.2) X10*3/uL Eos # (Auto) 0.2 (0.0-0.4) X10*3/uL Baso # (Auto) 0.0 (0.0-0.2) X10*3/uL Abs Immat Gran (auto) 0.02 (0.00-0.03) X10*3/uL Absolute Neuts (auto) 3.5 (2.0-8.3) x10*3/uL Absolute Nucleated RBC 0.000 (0.0-0.012) X10*3/uL Nucleated RBC % (auto) 0.0 (0.0-0.2) /100WBC PT 10.5 (9.9-13.0) SEC INR 0.9 (0.9-1.1) APTT 34.1 (24.1-38.0) SEC Sodium 140 (135-145) mmol/L Potassium 3.5 (3.3-5.1) mmol/L Chloride 107 (96-108) mmol/L Carbon Dioxide 24 (22-29) mmol/L Anion Gap 13 (12-20) BUN 15 (9-16) mg/dL Creatinine 0.83 (0.5-1.4) mg/dL Estim Creat Clear Calc 95.6 Estimated GFR > 60 Random Glucose 109 D (60-115) mg/dL Calcium 9.6 (8.4-10.2) mg/dL Magnesium 1.8 (1.6-2.6) mg/dL Total Bilirubin 0.7 (0.0-1.0) mg/dL Direct Bilirubin 0.3 (0.0-0.5) mg/dL AST 20 (5-37) U/L ALT 29 (0-40) U/L Alkaline Phosphatase 94 D (39-117) U/L Troponin I High Sens (<3.5-35.0) ng/L B-Natriuretic Peptide (<100) pg/mL Total Protein 6.2 L (6.5-8.0) g/dL Albumin 4.0 (3.5-5.0) g/dL COVID-19 (JENNY) (Negative) COVID-19 Clin Com 09/28/21 09/28/21 09/28/21 Range/Units 10:42 10:52 10:52 WBC (4.8-10.8) X10*3/uL RBC (4.60-5.80) X10*6/uL Hgb (14.0-18.0) g/dl Hct (42.0-52.0) % MCV (80.0-98.0) fL MCH (27.0-33.0) pg MCHC (31.0-36.0) g/dl RDW (11.0-16.0) % Plt Count (160-400) X10*3/uL MPV (9.4-12.4) fL Immature Gran % (Auto) (0.0-0.4) % Neut % (Auto) (45-73) % Lymph % (Auto) (20-40) % Boundary % (Auto) (2-11) % Eos % (Auto) (0-4) % Baso % (Auto) (0-2) % Lymph # (Auto) (1.2-4.9) X10*3/uL Bound[place] # (Auto) (0.1-1.2) X10*3/uL Eos # (Auto) (0.0-0.4) X10*3/uL Baso # (Auto) (0.0-0.2) X10*3/uL Abs Immat Gran (auto) (0.00-0.03) X10*3/uL Absolute Neuts (auto) (2.0-8.3) x10*3/uL Absolute Nucleated RBC (0.0-0.012) X10*3/uL Nucleated RBC % (auto) (0.0-0.2) /100WBC PT (9.9-13.0) SEC INR (0.9-1.1) APTT (24.1-38.0) SEC Sodium (135-145) mmol/L Potassium (3.3-5.1) mmol/L Chloride (96-108) mmol/L Carbon Dioxide (22-29) mmol/L Anion Gap (12-20) BUN (9-16) mg/dL Creatinine (0.5-1.4) mg/dL Estim Creat Clear Calc Estimated GFR Random Glucose (60-115) mg/dL Calcium (8.4-10.2) mg/dL Magnesium (1.6-2.6) mg/dL Total Bilirubin (0.0-1.0) mg/dL Direct Bilirubin (0.0-0.5) mg/dL AST (5-37) U/L ALT (0-40) U/L Alkaline Phosphatase (39-117) U/L Troponin I High Sens < 3.5 (<3.5-35.0) ng/L B-Natriuretic Peptide 54 (<100) pg/mL Total Protein (6.5-8.0) g/dL Albumin (3.5-5.0) g/dL COVID-19 (JENNY) Negative (Negative) COVID-19 Clin Com See Note 09/28/21 Range/Units 13:53 WBC (4.8-10.8) X10*3/uL RBC (4.60-5.80) X10*6/uL Hgb (14.0-18.0) g/dl Hct (42.0-52.0) % MCV (80.0-98.0) fL MCH (27.0-33.0) pg MCHC (31.0-36.0) g/dl RDW (11.0-16.0) % Plt Count (160-400) X10*3/uL MPV (9.4-12.4) fL Immature Gran % (Auto) (0.0-0.4) % Neut % (Auto) (45-73) % Lymph % (Auto) (20-40) % Boundary % (Auto) (2-11) % Eos % (Auto) (0-4) % Baso % (Auto) (0-2) % Lymph # (Auto) (1.2-4.9) X10*3/uL Bound[place] # (Auto) (0.1-1.2) X10*3/uL Eos # (Auto) (0.0-0.4) X10*3/uL Baso # (Auto) (0.0-0.2) X10*3/uL Abs Immat Gran (auto) (0.00-0.03) X10*3/uL Absolute Neuts (auto) (2.0-8.3) x10*3/uL Absolute Nucleated RBC (0.0-0.012) X10*3/uL Nucleated RBC % (auto) (0.0-0.2) /100WBC PT (9.9-13.0) SEC INR (0.9-1.1) APTT (24.1-38.0) SEC Sodium (135-145) mmol/L Potassium (3.3-5.1) mmol/L Chloride (96-108) mmol/L Carbon Dioxide (22-29) mmol/L Anion Gap (12-20) BUN (9-16) mg/dL Creatinine (0.5-1.4) mg/dL Estim Creat Clear Calc Estimated GFR Random Glucose (60-115) mg/dL Calcium (8.4-10.2) mg/dL Magnesium (1.6-2.6) mg/dL Total Bilirubin (0.0-1.0) mg/dL Direct Bilirubin (0.0-0.5) mg/dL AST (5-37) U/L ALT (0-40) U/L Alkaline Phosphatase (39-117) U/L Troponin I High Sens 3.6 (<3.5-35.0) ng/L B-Natriuretic Peptide (<100) pg/mL Total Protein (6.5-8.0) g/dL Albumin (3.5-5.0) g/dL COVID-19 (JENNY) (Negative) COVID-19 Clin Com ECG Data ECG #1: Attestation: I personally reviewed and interpreted this ECG as follows: ECG interpretation date: 09/28/21 ECG interpretation time: 10:19 Interpretation: Rate: 61 Rhythm: NSR [place]: normal Normal P waves. Normal DAISY. Normal QRS complex. Poor R wave progressions ST T wave : inverted I and aVL, no MARISOL qTC: normal prior studies: inverted t waves in I and aVL new from 07/2021 The study has been interpreted contemporaneously by me. Discharge Plan Discharge Clinical Impression: Chest pain Qualifiers: Chest pain type: precordial pain Qualified Code(s): R07.2 - Precordial pain Patient Disposition: Admitted As Inpatient
[2021-09-28 10:46] LABS: MANUAL DIFF FLAG NO
[2021-09-28 10:48] LABS: Basophils Percent Auto 0.7 % (0-2); Eosinophils Absolute Auto 0.2 X10*3/uL (0.0-0.4); Eosinophils Percent Auto 2.6 % (0-4); Hematocrit 41.2 % (42.0-52.0); Imm Gran Abs Auto 0.02 X10*3/uL (0.00-0.03); Imm Gran Pct Auto 0.3 % (0.0-0.4); Lymphocytes Absolute Auto 1.5 X10*3/uL (1.2-4.9); Lymphocytes Percent Auto 25.2 % (20-40); Mean Corpuscular Hemoglobin 30.5 pg (27.0-33.0); Mean Corpuscular Volume 89.8 fL (80.0-98.0); Mean Platelet Volume 11.2 fL (9.4-12.4); Monocytes Absolute Auto 0.6 X10*3/uL (0.1-1.2); Monocytes Percent Auto 10.6 % (2-11); Neutrophils Absolute Auto 3.5 x10*3/uL (2.0-8.3); Neutrophils Percent Auto 60.6 % (45-73); Platelet Count 164 X10*3/uL (160-400); Red Blood Count 4.59 X10*6/uL (4.60-5.80); Red Cell Distribution Width 12.3 % (11.0-16.0); White Blood Count 5.8 X10*3/uL (4.8-10.8)
[2021-09-28 10:54] LABS: INTERNATIONAL NORM RATIO 0.9 (0.9-1.1); Prothrombin Time 10.5 SEC (9.9-13.0)
[2021-09-28 10:57] LABS: Partial Thromboplastin Time 34.1 SEC (24.1-38.0)
[2021-09-28 11:02] LABS: Alanine Aminotransferase 29 U/L (0-40); Alkaline Phosphatase 94 U/L (39-117); Anion Gap 13 (12-20); Aspartate Amino Transferase 20 U/L (5-37); Bilirubin Direct 0.3 mg/dL (0.0-0.5); Bilirubin Total 0.7 mg/dL (0.0-1.0); Blood Urea Nitrogen 15 mg/dL (9-16); Calcium 9.6 mg/dL (8.4-10.2); Carbon Dioxide 24 mmol/L (22-29); Chloride 107 mmol/L (96-108); Creatinine Clr Calc Pharmacy 95.6; Estimated Glomerular Filt Rate > 60; Glucose Random 109 mg/dL (60-115); Magnesium 1.8 mg/dL (1.6-2.6); Potassium 3.5 mmol/L (3.3-5.1); Sodium 140 mmol/L (135-145); Total Protein 6.2 g/dL (6.5-8.0)
[2021-09-28 11:09] LABS: B Type Natriuretic Peptide 54 pg/mL (<100)
[2021-09-28 11:22] LABS: Troponin-I High Sensitivity < 3.5 ng/L (<3.5-35.0)
[2021-09-28 14:37] LABS: Troponin-I High Sensitivity 3.6 ng/L (<3.5-35.0)
[2021-09-28 14:39] LABS: COVID-19 Test Negative (Negative); IDNOW Serial# 16C4AD1C
--- NOTE | 2021-09-28 15:16 | PHA.MEDREC ---
MED REC COMPLETE, LISINOPRIL HAS RUN OUT OF REFILLS, PATIENT IS STILL SUPPOSED TO BE ON IT Pharmacy Consult ? Medication Reconciliation Pharmacy has completed the medication reconciliation.
--- NOTE | 2021-09-28 15:45 | P.HPHOSP_ITS ---
History of Present Illness Date of Service: 09/28/21 Chief Complaint: chest pressure 65yo M with 2v CAD + severe aortic stenosis, s/p CABG + aortic valve replacement, DM2, HTN, and HLD followed by Dr Martinez at [facility] [place] Cardiology, last seen 07/24/21. He presents after an episode of left-sided chest pressure radiating down the left arm that occurred while at work at 08:00 today. It was associated with dyspnea but not diaphoreis. It resolved spontaneously. He took 4 baby aspirins. He admits that this type of pressure has been happening intermittently over the last month, but not associated with exertion. Currently no chest pain. Initial hs-Tn-I <3.5; repeat was 3.6. EKG with new lateral T wave inversions. Cardiology was consulted and recommended admission for inpatient stress test. Review of Systems Review of Systems: Yes all other systems are reviewed and are negative [facility] Medical History Aortic stenosis Atherosclerotic cardiovascular disease CAD (coronary artery disease) Essential hypertension Glaucoma Hypercholesterolemia Obesity Obstructive sleep apnea Tobacco abuse Type 2 diabetes mellitus with hyperglycemia Family History Father CVD (cardiovascular disease) Cerebral hemorrhage Mother Medical history unknown Surgical History Aortic valve replaced History of lumbar surgery Status post aortic valve replacement with bioprosthetic valve Status post aorto-coronary artery bypass graft Social History Housing: House Patient Tobacco Use Status: Current everyday Tobacco user Cigarette Packs Per Day: 1 Years Smoked: stopped 01/2020 e-Cigarette/Vaping Use: Never Used Second Hand Smoke Exposure: No Advance Directives: No Advance Directives Information Provided: Yes Current occupational status: employed Cognitive needs: No Hearing needs: No Vision needs: Yes (Glasses) Meds Allergies Allergy/AdvReac Type Severity Reaction Status Date / Time Influenza Virus Vaccines Allergy Intermediate Unknown Verified 08/26/21 16:34 Active Medications: Current Medications Acetaminophen (Acetaminophen 325 Mg Tablet) 650 mg PO Q6H PRN PRN Reason: Pain, Mild (Pain Scale 1-3) Albuterol Sulfate (Albuterol Sulfate 90 Mcg 8 Gm Inhaler) 2 puff INHALE QID PRN PRN Reason: shortness of breath or wheezing Alprazolam (Alprazolam 0.25 Mg Tablet) 0.25 mg PO BID PRN PRN Reason: anxiety Amlodipine Besylate (Amlodipine Besylate 10 Mg Tablet) 10 mg PO DAILY [facility]; Protocol Aspirin (Aspirin 81 Mg Tab.Chew) 81 mg PO DAILY [facility] Atorvastatin Calcium (Atorvastatin Calcium 80 Mg Tablet) 80 mg PO BEDTIME [facility] Carvedilol (Carvedilol 25 Mg Tablet) 25 mg PO BID [facility]; Protocol Dextrose (Dextrose 50 % 25 Gm/50 Ml Syringe) 25 gm IVPUSH Q15M PRN; Protocol PRN Reason: per Hypoglycemia Standing Ord. Enoxaparin Sodium (Enoxaparin Sodium 40 Mg/0.4 Ml Syringe) 40 mg SUBCUT Q24H [facility] Glucose (Glucose Gel 15 Gm Gel..Gram.) 15 gm PO Q15M PRN; Protocol PRN Reason: per Hypoglycemia Standing Ord. Hydralazine HCl (Hydralazine Hcl 50 Mg Tablet) 50 mg PO QID [facility]; Protocol Insulin Human Lispro (Insulin Lispro 100 Unit/Ml 3 Ml Vial) 0 unit SUBCUT QIDACHS [facility]; Protocol Lisinopril (Lisinopril 40 Mg Tablet) 40 mg PO DAILY@1730 [facility]; Protocol Multivitamins/Vitamin C (Multivitamin Tablet) 1 tab PO DAILY [facility] Nitroglycerin (Nitroglycerin 0.4 Mg Tab.Subl) 0.4 mg SUBLINGUAL Q5MX3 PRN PRN Reason: Chest Pain Ondansetron HCl (Ondansetron Hcl 4 Mg/2 Ml Vial) 4 mg IVPUSH Q8H PRN PRN Reason: Nausea and Vomiting Pharmacy Consult (Consult Rx Perform Med Rec) 1 each MISCELLANE ONCE PRN PRN Reason: Consult order Sertraline HCl (Sertraline Hcl 50 Mg Tablet) 50 mg PO DAILY [facility] Sodium Chloride (0.9 % Sodium Chloride Flush 3 Ml Syringe) 3 ml IVFLUSH QSHIFT [facility] Home Medications Medication Instructions Recorded Confirmed Last Taken Type aspirin 81 mg tablet,delayed 81 mg PO DAILY 03/19/20 09/28/21 09/28/21 History release (Adult Aspirin Regimen) melatonin 3 mg capsule 3 mg PO BEDTIME PRN 03/19/20 09/28/21 Unknown History atorvastatin 80 mg tablet 80 mg PO BEDTIME 09/28/21 09/28/21 09/27/21 History glimepiride 4 mg tablet 4 mg PO DAILY 09/28/21 09/28/21 09/28/21 History lisinopril 40 mg tablet 40 mg PO DAILY@1730 09/28/21 09/28/21 Unknown History metformin 1,000 mg tablet 1,000 mg PO BIDWM 09/28/21 09/28/21 09/28/21 History multivitamin 1 tab PO DAILY 09/28/21 09/28/21 Unknown History Physical Exam Vital Signs and Narrative: Vital Signs: Last Vital Signs Temp 99.0 F 09/28/21 15:42 Pulse 69 09/28/21 15:42 Resp 16 09/28/21 15:42 BP 110/61 09/28/21 15:42 Pulse Ox 97 09/28/21 15:42 BMI result Body Mass Index 33.3 Gen: in no acute distress HEENT: sclera anicteric, moist mucus membranes Neck: supple Lungs: clear to auscultation bilaterally Heart: regular rate and rhythm, 2/6 systolic murmur along R sternal border Abd: soft, non-tender, non-distended, obese Ext: no edema Skin: warm/well-perfused Neuro: alert and oriented x3, no focal findings Psych: appropriate affect Results Labs CBC and Chem 7: 09/28/21 10:42 09/28/21 10:42 Labs: Laboratory Results - last 24 hr 09/28/21 09/28/21 09/28/21 10:42 10:42 10:42 MCV 89.8 MCH 30.5 MCHC 34.0 RDW 12.3 Plt Count 164 MPV 11.2 Immature Gran % (Auto) 0.3 Neut % (Auto) 60.6 Lymph % (Auto) 25.2 [place] % (Auto) 10.6 Eos % (Auto) 2.6 Baso % (Auto) 0.7 Lymph # (Auto) 1.5 [place] # (Auto) 0.6 Eos # (Auto) 0.2 Baso # (Auto) 0.0 Abs Immat Gran (auto) 0.02 Absolute Neuts (auto) 3.5 Absolute Nucleated RBC 0.000 Nucleated RBC % (auto) 0.0 PT 10.5 INR 0.9 APTT 34.1 Anion Gap 13 Estim Creat Clear Calc 95.6 Estimated GFR > 60 Random Glucose 109 D Calcium 9.6 Magnesium 1.8 Total Bilirubin 0.7 Direct Bilirubin 0.3 AST 20 ALT 29 Alkaline Phosphatase 94 D Troponin I High Sens B-Natriuretic Peptide Total Protein 6.2 L Albumin 4.0 COVID-19 (JENNY) COVID-19 [email or web address] Com 09/28/21 09/28/21 09/28/21 10:42 10:52 10:52 MCV MCH MCHC RDW Plt Count MPV Immature Gran % (Auto) Neut % (Auto) Lymph % (Auto) [place] % (Auto) Eos % (Auto) Baso % (Auto) Lymph # (Auto) [place] # (Auto) Eos # (Auto) Baso # (Auto) Abs Immat Gran (auto) Absolute Neuts (auto) Absolute Nucleated RBC Nucleated RBC % (auto) PT INR APTT Anion Gap Estim Creat Clear Calc Estimated GFR Random Glucose Calcium Magnesium Total Bilirubin Direct Bilirubin AST ALT Alkaline Phosphatase Troponin I High Sens < 3.5 B-Natriuretic Peptide 54 Total Protein Albumin COVID-19 (JENNY) Negative COVID-19 [email or web address] Com See Note 09/28/21 13:53 MCV MCH MCHC RDW Plt Count MPV Immature Gran % (Auto) Neut % (Auto) Lymph % (Auto) [place] % (Auto) Eos % (Auto) Baso % (Auto) Lymph # (Auto) [place] # (Auto) Eos # (Auto) Baso # (Auto) Abs Immat Gran (auto) Absolute Neuts (auto) Absolute Nucleated RBC Nucleated RBC % (auto) PT INR APTT Anion Gap Estim Creat Clear Calc Estimated GFR Random Glucose Calcium Magnesium Total Bilirubin Direct Bilirubin AST ALT Alkaline Phosphatase Troponin I High Sens 3.6 B-Natriuretic Peptide Total Protein Albumin COVID-19 (JENNY) COVID-19 [email or web address] Com Imaging Radiologist's Impressions: Impressions Chest X-Ray 09/28/21 10:19 IMPRESSION: Diffuse increased peribronchial wall thickening bilaterally is nonspecific, but can be seen in small airways disease and viral etiologies. No focal consolidation. Assessment and Plan (1) Chest pain: Qualifiers: Chest pain type: precordial pain Qualified Code(s): R07.2 - Precordial pain Status: Acute (2) Status post aortic valve replacement with bioprosthetic valve: Status: Acute (3) Status post aorto-coronary artery bypass graft: Status: Acute (4) Atherosclerotic cardiovascular disease: Status: Acute Plan 65yo M with 2v CAD + severe aortic stenosis, s/p CABG + aortic valve replacement, DM2, HTN, and HLD presenting with chest pain suspicious for angina # chest pain # CAD - admit to telemetry on observation, consult Cardiology, echocardiogram, ASA, prn NTG, statin, b-abel # HTN - continue 4 antihypertensive agents: amlodipine, carvedilol, hydralazine, lisinopril # DM2 - hold OHGs, give correction-dose lispro # mood disorder - continue sertraline, alprazolam # VTE ppx - LMWH # code - full Quality Stroke Does the patient have a stroke diagnosis?: No VTE Prior VTE?: No VTE Risk Level:: Medical - moderate - high VTE Device Contraindication: N/A - Device Ordered VTE Drug Contraindication: N/A - Med Ordered
[2021-09-28] MEDS: Enoxaparin Sodium 40 MG/0.4 ML SYRINGE SUBCUT (15:56)
[2021-09-28] MEDS: hydrALAZINE HCl 50 MG TABLET PO ×2 (16:01→20:37)
[2021-09-28] MEDS: 0.9 % Sodium Chloride Flush 3 ML SYRINGE IVFLUSH (16:02)
--- NOTE | 2021-09-28 16:32 | PC.NURSE ---
Blood sugar 82-pt denies symptoms of hypoglycemia-8 oz of orange juice given to patient to maintain stable blood sugar.
[2021-09-28 16:37] LABS: Glucose, Whole Blood 82 mg/dL (60-115)
[2021-09-28] MEDS: lisinopriL 40 MG TABLET PO (17:10)
[2021-09-28] MEDS: carvediloL 25 MG TABLET PO (20:37)
[2021-09-28] MEDS: Atorvastatin Calcium 80 MG TABLET PO (20:38)
[2021-09-28] MEDS: ALPRAZolam 0.25 MG TABLET PO (20:42)
[2021-09-28 21:08] LABS: Glucose, Whole Blood 114 mg/dL (60-115)
[2021-09-29] VITALS (11 sets, daily range): BP systolic 141–193; BP diastolic 61–92; PULSE 52–74; RESP 13–18; TEMP 36.5–36.9; O2SAT 94–98
--- NOTE | 2021-09-29 05:16 | PC.NURSE ---
pt states his bp is at his baseline and improved 174/85 left arm. pt denies h/a, pain or vision changes. pt is alert and oriened. watching tv.
[2021-09-29 06:50] LABS: Hematocrit 42.3 % (42.0-52.0); Hemoglobin 14.5 g/dl (14.0-18.0); Mean Corpuscular HGB Conc 34.3 g/dl (31.0-36.0); Mean Corpuscular Hemoglobin 30.9 pg (27.0-33.0); Mean Corpuscular Volume 90.2 fL (80.0-98.0); Mean Platelet Volume 11.2 fL (9.4-12.4); Platelet Count 151 X10*3/uL (160-400); Red Blood Count 4.69 X10*6/uL (4.60-5.80); Red Cell Distribution Width 12.4 % (11.0-16.0); White Blood Count 5.6 X10*3/uL (4.8-10.8)
[2021-09-29 07:07] LABS: Troponin-I High Sensitivity < 3.5 ng/L (<3.5-35.0)
[2021-09-29 07:08] LABS: Glucose, Whole Blood 104 mg/dL (60-115)
[2021-09-29 07:11] LABS: Anion Gap 12 (12-20); Blood Urea Nitrogen 13 mg/dL (9-16); Calcium 9.1 mg/dL (8.4-10.2); Carbon Dioxide 27 mmol/L (22-29); Chloride 107 mmol/L (96-108); Creatinine Clr Calc Pharmacy 111.8; Estimated Glomerular Filt Rate > 60; Glucose Random 116 mg/dL (60-115); Potassium 3.8 mmol/L (3.3-5.1); Sodium 142 mmol/L (135-145)
[2021-09-29] MEDS: Sertraline HCL 50 MG TABLET PO (08:40)
[2021-09-29] MEDS: Aspirin 81 MG TAB.CHEW PO (08:40)
[2021-09-29] MEDS: carvediloL 25 MG TABLET PO ×2 (08:40→20:09)
[2021-09-29] MEDS: hydrALAZINE HCl 25 MG TABLET 75 MG PO ×4 (08:40→19:52)
[2021-09-29] MEDS: Multivitamin TABLET 1 TAB PO (08:40)
[2021-09-29] MEDS: amLODIPine Besylate 10 MG TABLET PO (08:41)
[2021-09-29] MEDS: 0.9 % Sodium Chloride Flush 3 ML SYRINGE IVFLUSH ×3 (08:41→19:56)
[2021-09-29 09:04] LABS: Adenovirus PCR Not Detected (Not Detect.); Bordetella parapertussis PCR Not Detected (Not Detect.); Bordetella pertussis PCR Not Detected (Not Detect.); Chlamydia pneumoniae PCR Not Detected (Not Detect.); Coronavirus 229E PCR Not Detected (Not Detect.); Coronavirus HKU1 PCR Not Detected (Not Detect.); Coronavirus NL63 PCR Not Detected (Not Detect.); Coronavirus OC43 PCR Not Detected (Not Detect.); Human metapneumovirus PCR Not Detected (Not Detect.); Influenza A PCR Not Detected (Not Detect.); Influenza B PCR Not Detected (Not Detect.); Rhino/Enterovirus PCR Not Detected (Not Detect.); SARS-CoV-2 PCR Not Detected (Not Detect.)
[2021-09-29 09:05] LABS: Mycoplasma pneumoniae PCR Not Detected (Not Detect.); Parainfluenza 1 PCR Not Detected (Not Detect.); Parainfluenza 2 PCR Not Detected (Not Detect.); Parainfluenza 3 PCR Not Detected (Not Detect.); Parainfluenza 4 PCR Not Detected (Not Detect.); RSV PCR Not Detected (Not Detect.)
--- NOTE | 2021-09-29 09:48 | CA_ITS ---
Acquisition Time: 2021-09-30 09:08:56 Total Exercise Time: 00:06:17 Test Indications: CP, AORTIC STENOSIS Medications: SEE CHART Protocol: KIARA Max HR: 094 BPM 61% of Pred: 153 BPM Max BP: 178/090 mmHG Max Work Load: 7.4 METS Exercise stress test with exercise 6 min 17 sec of Kiara protocol, achieving 62% MPHR, with fatigue and mild sob with request to slow exercise, without chest discomfort, with isolated PACs, with normotensive response to exercise, with nondiagnostic EKG for ischemia. Treadmill placed in recovery , slowed to 1 MPH and test changed to pharmacological stress test with Lexiscan injection, without anginal symptoms, without arrythmia, with normotensive response to injection, with nondiagnostic EKG for ischemia. Nuclear images pending. Test reviewed with Dr Martinez. Referred By: Curt Martinez Overread By: MARIELA LOZA
--- NOTE | 2021-09-29 10:01 | PC.NURSE ---
pt seen by dr.. mason, pt is aware of plan of care for stress test in am.
--- NOTE | 2021-09-29 10:30 | PC.NURSE ---
pt ate 80% of breakfast
--- NOTE | 2021-09-29 10:31 | HO.PM.IMPN ---
Subjective Subjective Date of Service: 09/29/21 Interval History: No further chest pain BP elevated Review of Systems Review of Systems: Yes all other systems are reviewed and are negative Physical Exam Vital Signs: Vital Signs: Last Vital Signs Temp 98.5 F 09/29/21 08:38 Pulse 67 09/29/21 08:38 Resp 16 09/29/21 08:38 BP 184/84 H 09/29/21 08:38 Pulse Ox 96 09/29/21 08:38 BMI result Body Mass Index 33.3 Gen: in no acute distress HEENT: sclera anicteric, moist mucus membranes Neck: supple Lungs: clear to auscultation bilaterally Heart: regular rate and rhythm, 2/6 systolic murmur along R sternal border Abd: soft, non-tender, non-distended, obese Ext: no edema Skin: warm/well-perfused Neuro: alert and oriented x3, no focal findings Psych: appropriate affect Objective Data Active Medications Acetaminophen (Acetaminophen 325 Mg Tablet) 650 mg PO Q6H PRN PRN Reason: Pain, Mild (Pain Scale 1-3) Albuterol Sulfate (Albuterol Sulfate 90 Mcg 8 Gm Inhaler) 2 puff INHALE QID PRN PRN Reason: shortness of breath or wheezing Alprazolam (Alprazolam 0.25 Mg Tablet) 0.25 mg PO BID PRN PRN Reason: anxiety Last Admin: 09/28/21 20:42 Dose: 0.25 mg Documented by: AMRITA Amlodipine Besylate (Amlodipine Besylate 10 Mg Tablet) 10 mg PO DAILY [facility]; Protocol Last Admin: 09/29/21 08:41 Dose: 10 mg Documented by: DIAN Aspirin (Aspirin 81 Mg Tab.Chew) 81 mg PO DAILY [facility] Last Admin: 09/29/21 08:40 Dose: 81 mg Documented by: DIAN Atorvastatin Calcium (Atorvastatin Calcium 80 Mg Tablet) 80 mg PO BEDTIME [facility] Last Admin: 09/28/21 20:38 Dose: 80 mg Documented by: AMRITA Carvedilol (Carvedilol 25 Mg Tablet) 25 mg PO BID [facility]; Protocol Last Admin: 09/29/21 08:40 Dose: 25 mg Documented by: DIAN Dextrose (Dextrose 50 % 25 Gm/50 Ml Syringe) 25 gm IVPUSH Q15M PRN; Protocol PRN Reason: per Hypoglycemia Standing Ord. Enoxaparin Sodium (Enoxaparin Sodium 40 Mg/0.4 Ml Syringe) 40 mg SUBCUT Q24H [facility] Last Admin: 09/28/21 15:56 Dose: 40 mg Documented by: JANELLE Glucose (Glucose Gel 15 Gm Gel..Gram.) 15 gm PO Q15M PRN; Protocol PRN Reason: per Hypoglycemia Standing Ord. Hydralazine HCl (Hydralazine Hcl 25 Mg Tablet) 75 mg PO QID [facility]; Protocol Last Admin: 09/29/21 08:40 Dose: 75 mg Documented by: DIAN Insulin Human Lispro (Insulin Lispro 100 Unit/Ml 3 Ml Vial) 0 unit SUBCUT QIDACHS [facility]; Protocol Last Admin: 09/29/21 07:15 Dose: Not Given Documented by: BRYAN Non-Admin Reason: No Insulin Coverage Isosorbide Mononitrate (Isosorbide Mononitrate 60 Mg Tab.Er.24h) 60 mg PO DAILY [facility]; Protocol Lisinopril (Lisinopril 40 Mg Tablet) 40 mg PO DAILY@1730 [facility]; Protocol Last Admin: 09/28/21 17:10 Dose: 40 mg Documented by: JANELLE Multivitamins/Vitamin C (Multivitamin Tablet) 1 tab PO DAILY [facility] Last Admin: 09/29/21 08:40 Dose: 1 tab Documented by: DIAN Nicotine Polacrilex (Nicotine Polacrilex Lozenge 2 Mg Lozenge) 2 mg BUCCAL Q1H PRN PRN Reason: Nicotine Cravings Nitroglycerin (Nitroglycerin 0.4 Mg Tab.Subl) 0.4 mg SUBLINGUAL Q5MX3 PRN PRN Reason: Chest Pain Ondansetron HCl (Ondansetron Hcl 4 Mg/2 Ml Vial) 4 mg IVPUSH Q8H PRN PRN Reason: Nausea and Vomiting Pharmacy Consult (Consult Rx Perform Med Rec) 1 each MISCELLANE ONCE PRN PRN Reason: Consult order Sertraline HCl (Sertraline Hcl 50 Mg Tablet) 50 mg PO DAILY [facility] Last Admin: 09/29/21 08:40 Dose: 50 mg Documented by: DIAN Sodium Chloride (0.9 % Sodium Chloride Flush 3 Ml Syringe) 3 ml IVFLUSH QSHIFT [facility] Last Admin: 09/29/21 08:41 Dose: 3 ml Documented by: SCOC Labs CBC & Chem 7: 09/29/21 06:26 09/29/21 06:26 Labs: Laboratory Results - last 24 hr 09/28/21 09/28/21 09/28/21 10:42 10:42 10:42 MCV 89.8 MCH 30.5 MCHC 34.0 RDW 12.3 Plt Count 164 MPV 11.2 Immature Gran % (Auto) 0.3 Neut % (Auto) 60.6 Lymph % (Auto) 25.2 [place] % (Auto) 10.6 Eos % (Auto) 2.6 Baso % (Auto) 0.7 Lymph # (Auto) 1.5 [place] # (Auto) 0.6 Eos # (Auto) 0.2 Baso # (Auto) 0.0 Abs Immat Gran (auto) 0.02 Absolute Neuts (auto) 3.5 Absolute Nucleated RBC 0.000 Nucleated RBC % (auto) 0.0 PT 10.5 INR 0.9 APTT 34.1 Anion Gap 13 Estim Creat Clear Calc 95.6 Estimated GFR > 60 POC Glucose Random Glucose 109 D Calcium 9.6 Magnesium 1.8 Total Bilirubin 0.7 Direct Bilirubin 0.3 AST 20 ALT 29 Alkaline Phosphatase 94 D Troponin I High Sens B-Natriuretic Peptide Total Protein 6.2 L Albumin 4.0 Respiratory Panel Chen Adenovirus (Rapid PCR) B.pert (TEM-PCR) B.parapertussis DNA PCR C. pneumoniae DNA (PCR) Coronavirus OC43 (PCR) Coronavirus HKU1 (PCR) Coronavirus 229E (PCR) COVID-19 (JENNY) COVID-19 Clin Com Coronavirus NL63 (PCR) Human Metapneumovir PCR Influenza A (RT-PCR) Influenza B (RT-PCR) M. pneumoniae (PCR) Parainfluenza 1 (PCR) Parainfluenza 2 (PCR) Parainfluenza 3 (PCR) Parainfluenza 4 (PCR) RSV (PCR) Entero/Rhino (PCR) SARS-CoV-2 RNA (RT-PCR) 09/28/21 09/28/21 09/28/21 10:42 10:52 10:52 MCV MCH MCHC RDW Plt Count MPV Immature Gran % (Auto) Neut % (Auto) Lymph % (Auto) [place] % (Auto) Eos % (Auto) Baso % (Auto) Lymph # (Auto) [place] # (Auto) Eos # (Auto) Baso # (Auto) Abs Immat Gran (auto) Absolute Neuts (auto) Absolute Nucleated RBC Nucleated RBC % (auto) PT INR APTT Anion Gap Estim Creat Clear Calc Estimated GFR POC Glucose Random Glucose Calcium Magnesium Total Bilirubin Direct Bilirubin AST ALT Alkaline Phosphatase Troponin I High Sens < 3.5 B-Natriuretic Peptide 54 Total Protein Albumin Respiratory Panel Chen Adenovirus (Rapid PCR) B.pert (TEM-PCR) B.parapertussis DNA PCR C. pneumoniae DNA (PCR) Coronavirus OC43 (PCR) Coronavirus HKU1 (PCR) Coronavirus 229E (PCR) COVID-19 (JENNY) Negative COVID-19 Clin Com See Note Coronavirus NL63 (PCR) Human Metapneumovir PCR Influenza A (RT-PCR) Influenza B (RT-PCR) M. pneumoniae (PCR) Parainfluenza 1 (PCR) Parainfluenza 2 (PCR) Parainfluenza 3 (PCR) Parainfluenza 4 (PCR) RSV (PCR) Entero/Rhino (PCR) SARS-CoV-2 RNA (RT-PCR) 09/28/21 09/28/21 09/28/21 13:53 16:28 17:01 MCV MCH MCHC RDW Plt Count MPV Immature Gran % (Auto) Neut % (Auto) Lymph % (Auto) [place] % (Auto) Eos % (Auto) Baso % (Auto) Lymph # (Auto) [place] # (Auto) Eos # (Auto) Baso # (Auto) Abs Immat Gran (auto) Absolute Neuts (auto) Absolute Nucleated RBC Nucleated RBC % (auto) PT INR APTT Anion Gap Estim Creat Clear Calc Estimated GFR POC Glucose 82 Random Glucose Calcium Magnesium Total Bilirubin Direct Bilirubin AST ALT Alkaline Phosphatase Troponin I High Sens 3.6 B-Natriuretic Peptide Total Protein Albumin Respiratory Panel Chen See Note Adenovirus (Rapid PCR) Not Detected B.pert (TEM-PCR) Not Detected B.parapertussis DNA PCR Not Detected C. pneumoniae DNA (PCR) Not Detected Coronavirus OC43 (PCR) Not Detected Coronavirus HKU1 (PCR) Not Detected Coronavirus 229E (PCR) Not Detected COVID-19 (JENNY) COVID-19 Clin Com Coronavirus NL63 (PCR) Not Detected Human Metapneumovir PCR Not Detected Influenza A (RT-PCR) Not Detected Influenza B (RT-PCR) Not Detected M. pneumoniae (PCR) Not Detected Parainfluenza 1 (PCR) Not Detected Parainfluenza 2 (PCR) Not Detected Parainfluenza 3 (PCR) Not Detected Parainfluenza 4 (PCR) Not Detected RSV (PCR) Not Detected Entero/Rhino (PCR) Not Detected SARS-CoV-2 RNA (RT-PCR) Not Detected 09/28/21 09/29/21 09/29/21 20:53 06:26 06:26 MCV 90.2 MCH 30.9 MCHC 34.3 RDW 12.4 Plt Count 151 L MPV 11.2 Immature Gran % (Auto) Neut % (Auto) Lymph % (Auto) [place] % (Auto) Eos % (Auto) Baso % (Auto) Lymph # (Auto) [place] # (Auto) Eos # (Auto) Baso # (Auto) Abs Immat Gran (auto) Absolute Neuts (auto) Absolute Nucleated RBC 0.000 Nucleated RBC % (auto) 0.0 PT INR APTT Anion Gap 12 Estim Creat Clear Calc 111.8 Estimated GFR > 60 POC Glucose 114 Random Glucose 116 H Calcium 9.1 Magnesium Total Bilirubin Direct Bilirubin AST ALT Alkaline Phosphatase Troponin I High Sens B-Natriuretic Peptide Total Protein Albumin Respiratory Panel Chen Adenovirus (Rapid PCR) B.pert (TEM-PCR) B.parapertussis DNA PCR C. pneumoniae DNA (PCR) Coronavirus OC43 (PCR) Coronavirus HKU1 (PCR) Coronavirus 229E (PCR) COVID-19 (JENNY) COVID-19 Clin Com Coronavirus NL63 (PCR) Human Metapneumovir PCR Influenza A (RT-PCR) Influenza B (RT-PCR) M. pneumoniae (PCR) Parainfluenza 1 (PCR) Parainfluenza 2 (PCR) Parainfluenza 3 (PCR) Parainfluenza 4 (PCR) RSV (PCR) Entero/Rhino (PCR) SARS-CoV-2 RNA (RT-PCR) 09/29/21 09/29/21 06:26 06:56 MCV MCH MCHC RDW Plt Count MPV Immature Gran % (Auto) Neut % (Auto) Lymph % (Auto) [place] % (Auto) Eos % (Auto) Baso % (Auto) Lymph # (Auto) [place] # (Auto) Eos # (Auto) Baso # (Auto) Abs Immat Gran (auto) Absolute Neuts (auto) Absolute Nucleated RBC Nucleated RBC % (auto) PT INR APTT Anion Gap Estim Creat Clear Calc Estimated GFR POC Glucose 104 Random Glucose Calcium Magnesium Total Bilirubin Direct Bilirubin AST ALT Alkaline Phosphatase Troponin I High Sens < 3.5 B-Natriuretic Peptide Total Protein Albumin Respiratory Panel Chen Adenovirus (Rapid PCR) B.pert (TEM-PCR) B.parapertussis DNA PCR C. pneumoniae DNA (PCR) Coronavirus OC43 (PCR) Coronavirus HKU1 (PCR) Coronavirus 229E (PCR) COVID-19 (JENNY) COVID-19 Clin Com Coronavirus NL63 (PCR) Human Metapneumovir PCR Influenza A (RT-PCR) Influenza B (RT-PCR) M. pneumoniae (PCR) Parainfluenza 1 (PCR) Parainfluenza 2 (PCR) Parainfluenza 3 (PCR) Parainfluenza 4 (PCR) RSV (PCR) Entero/Rhino (PCR) SARS-CoV-2 RNA (RT-PCR) Assessment and Plan (1) Chest pain: Status: Acute Assessment and Plan: hospital d#2 65yo M with CAD + severe aortic stenosis, s/p CABG + aortic valve replacement, DM2, HTN, and HLD presenting with chest pain suspicious for angina # chest pain # CAD - high-risk, Cardiology consulted, inpt stress test in AM. TTE. continue ASA, statin, b-abel # HTN - on 4 antihypertensive agents: amlodipine, carvedilol, hydralazine, lisinopril. increase hydralazine and add Imdur 60 mg daily # DM2 - hold OHGs, give correction-dose lispro # mood disorder - continue sertraline, alprazolam # VTE ppx - LMWH Quality Stroke Does the patient have a stroke diagnosis?: No VTE Prior VTE?: No VTE Risk Level:: Medical - moderate - high VTE Device Contraindication: N/A - Device Ordered VTE Drug Contraindication: N/A - Med Ordered
[2021-09-29] MEDS: Isosorbide Mononitrate 60 MG TAB.ER.24H PO (11:33)
--- NOTE | 2021-09-29 11:52 | P.CONCA_ITS ---
History of Present Illness History of Present Illness Date of Service: 09/29/21 Chief complaint: chest pain Narrative: This is a cardiology consultation regarding chest pain. Patient is well known to us. He has a history of coronary disease as well as aortic stenosis. Has multiple vascular risk factors including type 2 diabetes, hypertension, dyslipidemia. In the past, he underwent workup for shortness of breath and that showed multivessel CAD and severe aortic stenosis. Then underwent coronary artery bypass surgery as well as aortic valve replacement. He was doing well during last visit but blood pressures were running high. Then started hydralazine. He states that for the last few weeks he has not been feeling good. 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 Also noticed discomfort in the left arm. When I questioned him regarding exer tional chest pain he denies it. He states that in fact he is walking up a flight of stairs-20 steps with no issues. 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 Review of Systems Review of Systems: Yes all other systems are reviewed and are negative Constitutional: Constitutional: Reports as per HPI Eyes: Eyes: Reports as per HPI ENT: Reports as per HPI Cardiovascular: Cardiovascular: Reports as per HPI, Denies acrocyanosis, Denies cool extremities, Reports chest pain, Denies leg edema, Denies lightheadedness, Denies palpitations and Denies dyspnea Respiratory: Respiratory: Reports as per HPI, Reports no additional respiratory complaints and Denies dyspnea Gastrointestinal: Gastrointestinal: Reports as per HPI and Reports no additional gastrointestinal complaints Genitourinary: Genitourinary: Reports no additional male genitourinary complaints and Reports as per HPI Musculoskeletal: Musculoskeletal: Reports no additional musculoskeletal complaints and Reports as per HPI Integumentary/Breasts: Skin/Breast: Reports system reviewed and no additional complaints, except as docu Neurologic: Reports system reviewed and no additional complaints, except as documented and Reports as per HPI Psychiatric: Psychiatric: Reports no additional psychiatric complaints and Reports as per HPI Endocrine: Endocrine: Reports no additional endocrine complaints, Reports as per HPI and Denies palpitations Hematologic/Lymphatic: Hematologic/Lymphatic: Reports no additional hemat ologic/lymphatic complaints and Reports as per HPI Allergic/Immunologic: Allergic/Immunologic: Reports no additional allergic/immunologic complaints and Reports as per HPI [facility] Past Medical History Medical History Aortic stenosis Atherosclerotic cardiovascular disease CAD (coronary artery disease) Essential hypertension Glaucoma Hypercholesterolemia Obesity Obstructive sleep apnea Tobacco abuse Type 2 diabetes mellitus with hyperglycemia Family History Family History Father CVD (cardiovascular disease) Cerebral hemorrhage Mother Medical history unknown Surgical History Surgical History Aortic valve replaced History of lumbar surgery Status post aortic valve replacement with bioprosthetic valve Status post aorto-coronary artery bypass graft Social History Social History Housing: House Patient Tobacco Use Status: Current everyday Tobacco user Cigarette Packs Per Day: 1 Years Smoked: stopped 01/2020 e-Cigarette/Vaping Use: Never Used Second Hand Smoke Exposure: No Advance Directives: No Advance Directives Information Provided: Yes Current occupational status: employed Cognitive needs: No Hearing needs: No Vision needs: Yes (Glasses) Meds Allergies Allergy/AdvReac Type Severity Reaction Status Date / Time Influenza Virus Vaccines Allergy Intermediate Unknown Verified 08/26/21 16:34 Active Medications: Current Medications Acetaminophen (Acetaminophen 325 Mg Tablet) 650 mg PO Q6H PRN PRN Reason: Pain, Mild (Pain Scale 1-3) Albuterol Sulfate (Albuterol Sulfate 90 Mcg 8 Gm Inhaler) 2 puff INHALE QID PRN PRN Reason: shortness of breath or wheezing Alprazolam (Alprazolam 0.25 Mg Tablet) 0.25 mg PO BID PRN PRN Reason: anxiety Last Admin: 09/28/21 20:42 Dose: 0.25 mg Documented by: Amlodipine Besylate (Amlodipine Besylate 10 Mg Tablet) 10 mg PO DAILY [facility]; Protocol Last Admin: 09/29/21 08:41 Dose: 10 mg Documented by: Aspirin (Aspirin 81 Mg Tab.Chew) 81 mg PO DAILY [facility] Last Admin: 09/29/21 08:40 Dose: 81 mg Documented by: Atorvastatin Calcium (Atorvastatin Calcium 80 Mg Tablet) 80 mg PO BEDTIME [facility] Last Admin: 09/28/21 20:38 Dose: 80 mg Documented by: Carvedilol (Carvedilol 25 Mg Tablet) 25 mg PO BID [facility]; Protocol Last Admin: 09/29/21 08:40 Dose: 25 mg Documented by: Dextrose (Dextrose 50 % 25 Gm/50 Ml Syringe) 25 gm IVPUSH Q15M PRN; Protocol PRN Reason: per Hypoglycemia Standing Ord. Enoxaparin Sodium (Enoxaparin Sodium 40 Mg/0.4 Ml Syringe) 40 mg SUBCUT Q24H [facility] Last Admin: 09/28/21 15:56 Dose: 40 mg Documented by: Glucose (Glucose Gel 15 Gm Gel..Gram.) 15 gm PO Q15M PRN; Protocol PRN Reason: per Hypoglycemia Standing Ord. Hydralazine HCl (Hydralazine Hcl 25 Mg Tablet) 75 mg PO QID [facility]; Protocol Last Admin: 09/29/21 08:40 Dose: 75 mg Documented by: Insulin Human Lispro (Insulin Lispro 100 Unit/Ml 3 Ml Vial) 0 unit SUBCUT QIDACHS [facility]; Protocol Last Admin: 09/29/21 07:15 Dose: Not Given Documented by: Isosorbide Mononitrate (Isosorbide Mononitrate 60 Mg Tab.Er.24h) 60 mg PO DAILY [facility]; Protocol Last Admin: 09/29/21 11:33 Dose: 60 mg Documented by: Lisinopril (Lisinopril 40 Mg Tablet) 40 mg PO DAILY@1730 [facility]; Protocol Last Admin: 09/28/21 17:10 Dose: 40 mg Documented by: Multivitamins/Vitamin C (Multivitamin Tablet) 1 tab PO DAILY [facility] Last Admin: 09/29/21 08:40 Dose: 1 tab Documented by: Nicotine Polacrilex (Nicotine Polacrilex Lozenge 2 Mg Lozenge) 2 mg BUCCAL Q1H PRN PRN Reason: Nicotine Cravings Nitroglycerin (Nitroglycerin 0.4 Mg Tab.Subl) 0.4 mg SUBLINGUAL Q5MX3 PRN PRN Reason: Chest Pain Ondansetron HCl (Ondansetron Hcl 4 Mg/2 Ml Vial) 4 mg IVPUSH Q8H PRN PRN Reason: Nausea and Vomiting Pharmacy Consult (Consult Rx Perform Med Rec) 1 each MISCELLANE ONCE PRN PRN Reason: Consult order Sertraline HCl (Sertraline Hcl 50 Mg Tablet) 50 mg PO DAILY [facility] Last Admin: 09/29/21 08:40 Dose: 50 mg Documented by: Sodium Chloride (0.9 % Sodium Chloride Flush 3 Ml Syringe) [facility] Last Admin: 09/29/21 08:41 Dose: 3 ml Documented by: Home Medications Medication Instructions Recorded Confirmed Last Taken Type aspirin 81 mg tablet,delayed 81 mg PO DAILY 03/19/20 09/28/21 09/28/21 History release (Adult Aspirin Regimen) melatonin 3 mg capsule 3 mg PO BEDTIME PRN 03/19/20 09/28/21 Unknown History atorvastatin 80 mg tablet 80 mg PO BEDTIME 09/28/21 09/28/21 09/27/21 History glimepiride 4 mg tablet 4 mg PO DAILY 09/28/21 09/28/21 09/28/21 History lisinopril 40 mg tablet 40 mg PO DAILY@1730 09/28/21 09/28/21 Unknown History metformin 1,000 mg tablet 1,000 mg PO BIDWM 09/28/21 09/28/21 09/28/21 History multivitamin 1 tab PO DAILY 09/28/21 09/28/21 Unknown History Physical Exam Vital Signs: Vital Signs: Last Vital Signs Temp 98.1 F 09/29/21 11:41 Pulse 66 09/29/21 11:41 Resp 14 09/29/21 11:41 BP 166/81 H 09/29/21 11:41 Pulse Ox 96 09/29/21 11:41 BMI result Body Mass Index 33.3 Const: General: comfortable and no acute distress Orientation/consciousness: patient oriented x3 HEENT: Other: Unremarkable Head: Yes normal to inspection Neck: Neck: Yes normal visual inspection Chest: Chest palpation & inspection: normal inspection of the chest Resp: Auscultation: clear to auscultation bilaterally Cardio: Palpation: normal PMI Heart sounds: S1 normal heart sound present, S2 normal heart sound present, no gallops, Murmur heart sound present systolic early, I/ and at the right sternal border and no rubs GI: Palpation (GI): Soft to palpation Back/Spine/Pelvis: Other: unremarkable Skin: General skin exam: no rashes or lesions noted Neuro: General: patient oriented x3 Extrem: General: Yes normal to inspection Psych: Mental Status: mental status grossly normal Objective Labs and Meds Result diagrams: 09/29/21 06:26 09/29/21 06:26 Lab results: Laboratory Results - last 24 hr 09/28/21 09/28/21 09/28/21 10:52 13:53 16:28 WBC RBC Hgb Hct MCV MCH MCHC RDW Plt Count MPV Absolute Nucleated RBC Nucleated RBC % (auto) Sodium Potassium Chloride Carbon Dioxide Anion Gap BUN Creatinine Estim Creat Clear Calc Estimated GFR POC Glucose 82 Random Glucose Calcium Troponin I High Sens 3.6 Respiratory Panel Chen Adenovirus (Rapid PCR) B.pert (TEM-PCR) B.parapertussis DNA PCR C. pneumoniae DNA (PCR) Coronavirus OC43 (PCR) Coronavirus HKU1 (PCR) Coronavirus 229E (PCR) COVID-19 (JENNY) Negative COVID-19 Clin Com See Note Coronavirus NL63 (PCR) Human Metapneumovir PCR Influenza A (RT-PCR) Influenza B (RT-PCR) M. pneumoniae (PCR) Parainfluenza 1 (PCR) Parainfluenza 2 (PCR) Parainfluenza 3 (PCR) Parainfluenza 4 (PCR) RSV (PCR) Entero/Rhino (PCR) SARS-CoV-2 RNA (RT-PCR) 09/28/21 09/28/21 09/29/21 17:01 20:53 06:26 WBC 5.6 RBC 4.69 Hgb 14.5 Hct 42.3 MCV 90.2 MCH 30.9 MCHC 34.3 RDW 12.4 Plt Count 151 L MPV 11.2 Absolute Nucleated RBC 0.000 Nucleated RBC % (auto) 0.0 Sodium Potassium Chloride Carbon Dioxide Anion Gap BUN Creatinine Estim Creat Clear Calc Estimated GFR POC Glucose 114 Random Glucose Calcium Troponin I High Sens Respiratory Panel Chen See Note Adenovirus (Rapid PCR) Not Detected B.pert (TEM-PCR) Not Detected B.parapertussis DNA PCR Not Detected C. pneumoniae DNA (PCR) Not Detected Coronavirus OC43 (PCR) Not Detected Coronavirus HKU1 (PCR) Not Detected Coronavirus 229E (PCR) Not Detected COVID-19 (JENNY) COVID-19 Clin Com Coronavirus NL63 (PCR) Not Detected Human Metapneumovir PCR Not Detected Influenza A (RT-PCR) Not Detected Influenza B (RT-PCR) Not Detected M. pneumoniae (PCR) Not Detected Parainfluenza 1 (PCR) Not Detected Parainfluenza 2 (PCR) Not Detected Parainfluenza 3 (PCR) Not Detected Parainfluenza 4 (PCR) Not Detected RSV (PCR) Not Detected Entero/Rhino (PCR) Not Detected SARS-CoV-2 RNA (RT-PCR) Not Detected 09/29/21 09/29/21 09/29/21 06:26 06:26 06:56 WBC RBC Hgb Hct MCV MCH MCHC RDW Plt Count MPV Absolute Nucleated RBC Nucleated RBC % (auto) Sodium 142 Potassium 3.8 Chloride 107 Carbon Dioxide 27 Anion Gap 12 BUN 13 Creatinine 0.71 Estim Creat Clear Calc 111.8 Estimated GFR > 60 POC Glucose 104 Random Glucose 116 H Calcium 9.1 Troponin I High Sens < 3.5 Respiratory Panel Chen Adenovirus (Rapid PCR) B.pert (TEM-PCR) B.parapertussis DNA PCR C. pneumoniae DNA (PCR) Coronavirus OC43 (PCR) Coronavirus HKU1 (PCR) Coronavirus 229E (PCR) COVID-19 (JENNY) COVID-19 Clin Com Coronavirus NL63 (PCR) Human Metapneumovir PCR Influenza A (RT-PCR) Influenza B (RT-PCR) M. pneumoniae (PCR) Parainfluenza 1 (PCR) Parainfluenza 2 (PCR) Parainfluenza 3 (PCR) Parainfluenza 4 (PCR) RSV (PCR) Entero/Rhino (PCR) SARS-CoV-2 RNA (RT-PCR) ECG Interpretation: EKG with sinus rhythm at 61/Min; poor R-wave progression in the anterior leads; T inversions in lead 1/aVL. Changes in 1/aVL not seen before. EKG not in expanse. Assessment and Plan (1) Chest pain: Qualifiers: Chest pain type: precordial pain Qualified Code(s): R07.2 - Precordial pain Status: Acute (2) Status post aorto-coronary artery bypass graft: Status: Acute (3) Status post aortic valve replacement with bioprosthetic valve: Status: Acute (4) Atherosclerotic cardiovascular disease: Status: Acute (5) Hypertensive urgency: Status: Acute Plan Unremarkable high sensitivity troponins. EKG as above with lateral nonspecific changes. Blood pressures are quite high and as much as 193/85 mm Hg. Most recently 166/81 mm Hg. 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 However, based on numerous risk factors that he has still worthwhile evaluating for ischemia with a stress test. This can be arranged for tomorrow. In the interim, with regard to blood pressure he is on amlodipine, carvedilol, hydralazine, lisinopril at near maximum doses. We can further go up on the hydralazine as much room available. Otherwise, also start long-acting nitrates. Discussed with . Procedures Date of Service Date of Service: 09/29/21
[2021-09-29 12:40] LABS: Glucose, Whole Blood 163 mg/dL (60-115)
[2021-09-29] MEDS: Insulin Lispro 100 UNIT/ML 3 ML VIAL SUBCUT ×2 (13:21→20:00)
--- NOTE | 2021-09-29 14:51 | MHC.CM.PN ---
CM attempted to meet with Patient in room 467 but discovered that Patient had not yet come up to the floor from ED Overflow. CM attempted to speak with Patient on his cell @ [phone], but the phone was answered by Patient's /Ana instead. Patient lives in a house with his , Son and Granddaughter and he is functionally independent and working. Home no services is the goal and CM has initiated and will follow for dc planning. LUZ ELENA addressed with Ana and per her request original LUZ ELENA and keyana HCP is being left at bedside (apparently Patient and his are moving and are considering waiting until they move in order to put the correct address on the HCP).Patient has received Moderna X3 and PCP is DR. Pacheco Po.
--- NOTE | 2021-09-29 15:20 | PC.NURSE ---
Report given to ADA Hall at [facility]
[2021-09-29 16:00] LABS: Glucose, Whole Blood 118 mg/dL (60-115)
[2021-09-29] MEDS: lisinopriL 40 MG TABLET PO (16:40)
[2021-09-29] MEDS: Enoxaparin Sodium 40 MG/0.4 ML SYRINGE SUBCUT (16:40)
[2021-09-29] MEDS: ALPRAZolam 0.25 MG TABLET PO (19:52)
[2021-09-29] MEDS: Atorvastatin Calcium 80 MG TABLET PO (19:52)
[2021-09-29 19:57] LABS: Glucose, Whole Blood 191 mg/dL (60-115)
[2021-09-30 03:51] VITALS: BP 160/75; PULSE 67; RESP 18; TEMP 36.8; O2SAT 95
[2021-09-30 07:05] VITALS: BP 180/77; PULSE 62; RESP 18; TEMP 36.4; O2SAT 96
[2021-09-30 07:16] LABS: Glucose, Whole Blood 133 mg/dL (60-115)
[2021-09-30 07:23] LABS: Glucose, Whole Blood 139 mg/dL (60-115)
--- NOTE | 2021-09-30 08:00 | CA_ITS ---
Transthoracic Echocardiogram Patient (Last, First, Middle): Ney George M Gender: Male Date of : 1955 Age: 65 Procedure Date: 09/30/2021 Procedure Type: Transthoracic Echocardiogram Location: [facility] [place] Height: 170.18 cm Weight: 96.62 kg BSA: 2.08 m2 Heart Rate: bpm BP: 180 / 77 mmHg Spotter: Referring MD: Mikal Mayers MD Symptoms: chest pain Study Quality: Fair ECG Rhythm: Sinus Conclusions: - The left ventricular systolic function is normal. The visually estimated ejection fraction is between 55-60%. - The basal inferior segment is hypokinetic. - Moderately increased right ventricular cavity size. - A bioprosthetic aortic valve is present. The prosthetic aortic valve appears to be functioning normally. Findings Left Ventricle Normal left ventricular cavity size. There is mildly increased left ventricular wall thickness. The left ventricular systolic function is normal. The visually estimated ejection fraction is between 55-60%. E/E prime ratio is between 8 and 15 consistent with indeterminate filling pressures. Evidence suggests grade II (moderate) diastolic dysfunction. Wall Motion Rest Echo Findings The basal inferior segment is hypokinetic. Right Ventricle Moderately increased right ventricular cavity size. There is mildly decreased right ventricular systolic function. Atria The left atrium is mildly dilated. The right atrium is normal in size. Aortic Valve A bioprosthetic aortic valve is present. The prosthetic aortic valve appears to be functioning normally. The aortic valve was not well visualized. The mean gradient is 17 mmHg. The aortic valve area is 1.46 cm2. There is no aortic valve regurgitation. Mitral Valve The mitral valve appears normal. There is trace mitral valve regurgitation. There is no mitral valve stenosis. Pulmonic Valve The pulmonic valve is likely normal. Tricuspid Valve There is trace tricuspid valve regurgitation. The pulmonary artery systolic pressure is normal. Great Vessels The aorta was not well visualized. Venous The inferior vena cava is normal in size and collapses greater than 50% with inspiration. Pericardium/Pleural There is no evidence of pericardial effusion. Prior Study Comparison Changes noted compared to prior study dated: 04/17/2020. Inferior wall motion abnormality likely seen in prior study, but quality was suboptimal. Increase in right ventricular size. Measurements 2D Linear Measurements IVSd: 1.24 0.6-0.9/0.6-1.0 cm LVIDd: 4.76 3.9-5.3/4.2-5.9 cm LVIDd Index: 2.29 2.4-3.2/2.2-3.1 cm/m2 LVIDs: 3.18 2.0-3.6 cm LVPWd: 1.22 0.7-1.1 cm LA Diam: 4.50 2.7-3.8/3.0-4.0 cm LAIDs Index: 2.16 1.5-2.3 cm/m2 LV Mass: 279.26 67-162/88-224 g LV Mass Index: 134.26 43-95/49-115 g/m2 LVOT Diam: 2.00 3.0+(-)1.3 cm Mitral Valve MV Pk E: 1.07 MV PK A: 0.97 MV Decel Time: 223.00 E/A: 1.10 E'Lateral: 10.00 E'Medial: 6.20 E/E' Med: 17.30 E/E' Lat: 10.70 PHT: 65.00 MVA PHT: 3.38 Decel [place]: 4.80 Aortic Valve AoV Pk Lit: 2.73 AoV Mn Lit: 1.87 AoV VTI: 0.68 AoV Pk Grad: 30.00 Aov Mn Grad: 17.00 RABIA Cont.VTI: 1.46 LVOT LVOT Pk Lit: 1.20 LVOT Mn Lit: 0.81 LVOT VTI: 0.32 LVOT Pk Grad: 6.00 LVOT Mn Grad: 3.00 LVOT Diam: 2.00 LVOT Area: 3.14 Diastolic Function MV Pk E: 1.07 MV Pk A: 0.97 E/A: 1.10 E'Medial: 6.20 E/E' Med: 17.30 E' Laterial: 10.00 E/E' Lat: 10.70 Right Ventricle TAPSE (mm): 19.00 TVS' Lit: 8.00 Tricuspid Valve TR Pk Lit: 2.16 TR Pk Grad: 19.00 RA Press: 8.00 RVSP: 27.00 Great Vessels Aorta Ao Arch: 2.90 Pulmonary Valve PV Pk Lit: 1.24 Peak PV Grad: 6.00 Updated in Other Vendor System with Status of Final Curt Martinez MD electronically signed on 09/30/2021 12:48:26 PM with status of Final
[2021-09-30] MEDS: Aspirin 81 MG TAB.CHEW PO (08:49)
[2021-09-30] MEDS: amLODIPine Besylate 10 MG TABLET PO (08:49)
[2021-09-30] MEDS: Sertraline HCL 50 MG TABLET PO (08:49)
[2021-09-30] MEDS: 0.9 % Sodium Chloride Flush 3 ML SYRINGE IVFLUSH (08:49)
[2021-09-30] MEDS: Isosorbide Mononitrate 60 MG TAB.ER.24H PO (08:49)
[2021-09-30] MEDS: hydrALAZINE HCl 25 MG TABLET 75 MG PO ×2 (08:50→11:45)
[2021-09-30] MEDS: Multivitamin TABLET 1 TAB PO (08:50)
[2021-09-30] MEDS: carvediloL 25 MG TABLET PO (08:50)
--- NOTE | 2021-09-30 10:18 | PM.PNCARD ---
Subjective Subjective Date of Service: 09/30/21 Principal diagnosis: CP, HTN Interval history: Cardiology follow up for the above. Seen at 0945 in stress lab. Today he reports feeling well and that he hopes to go home today. No chest discomfort. Denies sob, palpitation, dizziness. Has no complaints today. Taking all meds Review of Systems Review of Systems as above Yes all other systems are reviewed and are negative Physical Exam Vital Signs: Last Vital Signs Temp 97.5 F 09/30/21 07:05 Pulse 62 09/30/21 07:05 Resp 18 09/30/21 07:05 BP 180/77 H 09/30/21 07:05 Pulse Ox 96 09/30/21 07:05 BMI result Body Mass Index 33.3 Const General: cooperative, healthy appearing, no acute distress, alert and awake Orientation/consciousness: patient oriented x3 Neck Neck: Yes normal visual inspection and Yes no JVD Resp Effort & Inspection: normal respiratory effort, able to speak in complete sentences and not labored Auscultation: clear to auscultation bilaterally, no rales, no rhonchi and no wheezes Cardio Rate: regular rate Rhythm: regular rhythm Heart sounds: S1 normal heart sound present and S2 normal heart sound present Peripheral pulses: Peripheral pulses 2+ throughout GI Inspection: Yes normal to inspection Neuro General: patient oriented x3 Extrem Other: trace bilateral lower leg edema General: Yes normal to inspection Objective Labs and Meds Result diagrams: 09/29/21 06:26 09/29/21 06:26 Lab results: Laboratory Results - last 24 hr 09/29/21 09/29/21 09/29/21 12:34 15:56 19:52 POC Glucose 163 H 118 H 191 H 09/30/21 09/30/21 07:05 07:19 POC Glucose 133 H 139 H Progress Note: A&P Assessment and plan (1) Chest pain: Status: Acute Assessment and Plan: Admit with report of chest discomfort, noted to have BP elevation: hypertensive urgency. Troponins normal. EKG with nonspecific lateral changes. Has known Hx of CAD, CABG, Bio AVR. Today reports feeling well, no chest pains or sob. Stress portion of nuclear stress test being done today. Echo completed, result pending. Continue current med mgt with aspirin, atorvastatin, carvedilol, amlodipine, hydralazine, imdur. We will follow. (2) Hypertensive urgency: Status: Acute Assessment and Plan: BP elevated this admit, up to 193/85 initially. His hydralazine dose has been increased and imdur added. BP still not optimal. Continue current mgt. (3) Status post aorto-coronary artery bypass graft: Status: Acute (4) Atherosclerotic cardiovascular disease: Status: Acute (5) Status post aortic valve replacement with bioprosthetic valve: Status: Acute Assessment and Plan: Functioning normally on last echo, 04/2020. New Echo report pending. Time Spent With Patient Time: Total time spent is greater than 50% in coordination of care (as documented) at patient's floor/unit and/or counseling patient: Progress Note: Quality Stroke Does the patient have a stroke diagnosis?: No Procedures Date of Service Date of Service: 09/30/21
[2021-09-30 10:58] VITALS: BP 144/73; PULSE 67; RESP 18; TEMP 36.7; O2SAT 95
[2021-09-30 11:25] LABS: Glucose, Whole Blood 170 mg/dL (60-115)
[2021-09-30] MEDS: Insulin Lispro 100 UNIT/ML 3 ML VIAL SUBCUT (11:45)
--- NOTE | 2021-09-30 13:09 | PM.DS ---
DS: Providers Provider Date of Service: 09/30/21 Date of admission: 09/28/21 15:41 Date of discharge: 09/30/21 Primary care physician: Tara Novak MD Consults: 09/28/21 15:14 Consult to Cardiology Routine Consulting Provider: Curt Martinez Reason for consultation: chest pain DS: Diagnosis Discharge Diagnosis (1) Chest pain: Status: Acute (2) Hypertensive urgency: Status: Acute (3) Status post aorto-coronary artery bypass graft: Status: Acute (4) Atherosclerotic cardiovascular disease: Status: Acute (5) Status post aortic valve replacement with bioprosthetic valve: Status: Acute DS: Summary Hospital Course Hospital Course: from my admission H+P, 09/28/21: 65yo M with 2v CAD + severe aortic stenosis, s/p CABG + aortic valve replacement, DM2, HTN, and HLD followed by Dr Martinez [place] [facility], last seen 07/24/21.? He presents after an episode of left-sided chest pressure radiating down the left arm that occurred while at work at 08:00 today.? It was associated with dyspnea but not diaphoreis.? It resolved spontaneously.? He took 4 baby aspirins.? He admits that this type of pressure has been happening intermittently over the last month, but not associated with exertion.? Currently no chest pain.? Initial hs-Tn-I <3.5; repeat was 3.6.? EKG with new lateral T wave inversions.? Cardiology was consulted and recommended admission for inpatient stress test. Given high cardiac risk, he was admitted for inpatient stress test. Cardiology was consulted. Echocardiogram showed basal inferior wall motion abnormality that appeared old. The stress perfusion imaging revealed a defect in the same area. He had no chest pain at all during his admission and repeat hs-Tn-I was <3.5. He was discharged home with instructions to return on 10/01/21 for the rest portion of his MPS. Due to uncontrolled blood pressure, hydralazine was increased and Imdur added. He will follow up with Cardiology and Primary Care in 1 week. Smoking cessation was counseled. Time Spent with Patient Time attestation: Total time spent providing and/or coordinating discharge services: Discharge coordination time: Greater than 30 minutes Quality: Safe Use of Opioids Does Pt have an Active Cancer Diagnosis on the Problem List?: No Quality: Stroke Does the patient have a stroke diagnosis?: No Physical Exam Vital Signs: Vital Signs: Last Vital Signs Temp 98.1 F 09/30/21 10:58 Pulse 67 09/30/21 10:58 Resp 18 09/30/21 10:58 BP 144/73 H 09/30/21 10:58 Pulse Ox 95 09/30/21 10:58 BMI result Body Mass Index 33.3 DS: Data Data Completed and Pending Labs on day of discharge: Laboratory Results - last 24 hr 09/29/21 09/29/21 09/30/21 15:56 19:52 07:05 POC Glucose 118 H 191 H 133 H 09/30/21 09/30/21 07:19 10:59 POC Glucose 139 H 170 H Discharge Plan Discharge Patient Disposition: Home, Self-Care Discharge Diagnosis: chest pain uncontrolled hypertension Referrals: Tara Novak MD [Primary Care Provider] - 1 Week Curt Martinez MD [Physician] - 1 Week Discharge Medications: New hydralazine 25 mg Tablet 75 mg PO QID Qty: 360 0RF Protocol: Hold for SBP< HOLD for SBP < : 90 isosorbide mononitrate 60 mg Tablet Extended Release 24 Hr 60 mg PO DAILY Qty: 30 0RF Protocol: Hold for SBP< HOLD for SBP < : 90 nicotine (polacrilex) 2 mg Lozenge 2 mg buccal Q1H PRN (Reason: Nicotine Cravings) Qty: 100 0RF Continued amlodipine 10 mg tablet 10 mg PO DAILY Qty: 90 3RF carvedilol 25 mg tablet 25 mg PO BID 15 Days Qty: 30 2RF Rx Instructions: must administer with a meal/food multivitamin Tablet 1 tab PO DAILY 0RF atorvastatin 80 mg tablet 80 mg PO BEDTIME 0RF metformin 1,000 mg tablet 1,000 mg PO BIDWM 0RF glimepiride 4 mg tablet 4 mg PO DAILY 0RF lisinopril 40 mg tablet 40 mg PO DAILY@1730 0RF aspirin [Adult Aspirin Regimen] 81 mg tablet,delayed release (DR/EC) 81 mg PO DAILY 0RF melatonin 3 mg capsule 3 mg PO BEDTIME PRN (Reason: Sleep) 0RF sertraline 50 mg tablet 50 mg PO DAILY 90 Days Qty: 90 1RF alprazolam 0.25 mg tablet 0.25 mg PO BID PRN (Reason: anxiety) 90 Days Qty: 90 0RF albuterol sulfate [ProAir HFA] 90 mcg/actuation HFA aerosol inhaler 2 puff inhalation QID PRN (Reason: shortness of breath or wheezing) Qty: 8.5 0RF (DME) blood pressure monitor Kit See Rx Instructions .ROUTE .MEDSUPPLY Qty: 1 0RF Rx Instructions: As directed Discontinued hydralazine 50 mg tablet 50 mg PO QID 90 Days Qty: 360 3RF Diet: advance to usual diet and diabetic diet Activity on Discharge: As tolerated Stand Alone Forms: Patient Portal Discharge page Care Plan Goals: heart health Health Concerns: chest pain uncontrolled blood pressure Plan of Treatment: return to Nuclear Medicine on 10/01/21 for resting portion of stress test and follow up with Dr Martinez [place] [facility] [place]; also see your primary care doctor next week continue amlodipine 10 mg daily, carvedilol 25 mg twice daily, and lisinopril 40 mg daily increase hydralazine from 50 mg to 75 mg 4x a day add isosorbide mononitrate 60 mg once daily quit smoking; use nicotine lozenge to help Assessment: See Discharge Summary Patient Instructions: Heart Healthy Diet (DC), Hypertension (DC)
--- NOTE | 2021-09-30 13:24 | MHC.CM.PN ---
PT DCD HOME NO SKILLED SERV CEIS ORDERED BY
== END 2021-09-30 15:39 | disposition home or self-care (01) ==
LOC: HO.ED 11:56 → HO.EDOVER 15:47 → HO.IMC 09-29 14:19
PROVIDERS: Admitting Provider Family Medicine; Emergency Provider Emergency Medicine; PCP Internal Medicine; Visit Provider Family Medicine
DX: R07.2 Precordial pain (principal); I25.10 Atherosclerotic heart disease of native coronary artery without angina pectoris; I16.0 Hypertensive urgency; I44.0 Atrioventricular block, first degree; I35.0 Nonrheumatic aortic (valve) stenosis; R94.31 Abnormal electrocardiogram [ECG] [EKG]; E11.65 Type 2 diabetes mellitus with hyperglycemia; E78.5 Hyperlipidemia, unspecified; E66.9 Obesity, unspecified; G47.33 Obstructive sleep apnea (adult) (pediatric); F17.210 Nicotine dependence, cigarettes, uncomplicated; Z68.33 Body mass index [BMI] 33.0-33.9, adult; Z20.822 Contact with and (suspected) exposure to COVID-19; Z95.1 Presence of aortocoronary bypass graft; Z95.2 Presence of prosthetic heart valve; Z88.7 Allergy status to serum and vaccine; Z79.82 Long term (current) use of aspirin; Z79.84 Long term (current) use of oral hypoglycemic drugs; Z79.899 Other long term (current) drug therapy
CPT/HCPCS: 36415; 71045; 78452; 80048; 80076; 82947; 83735; 83880; 84484; 85025; 85027; 85610; 85730; 87633; 87635; 93005; 93017; 93306; 96372; 96374; 96375; 99215; 99219; 99285; A9500; J0280; J1650; J2785

== ENCOUNTER → 2021-10-07 14:52 | Outpatient (BNVA) | payer BC, SELFPAY | PROVIDERS: PCP Internal Medicine; Referring Provider Internal Medicine; Visit Provider Internal Medicine | DX: I25.10 Atherosclerotic heart disease of native coronary artery without angina pectoris (principal) ==

== ENCOUNTER 2021-10-21 14:05 | Outpatient (REF) | payer BC, SELFPAY ==
[2021-10-21 14:22] LABS: MANUAL DIFF FLAG NO
[2021-10-21 14:38] LABS: COVID-19 Test Negative (Negative)
[2021-10-21 15:07] LABS: Basophils Absolute Auto 0.1 X10*3/uL (0.0-0.2); Basophils Percent Auto 0.8 % (0-2); Eosinophils Absolute Auto 0.2 X10*3/uL (0.0-0.4); Eosinophils Percent Auto 2.9 % (0-4); Hematocrit 39.6 % (42.0-52.0); Hemoglobin 13.6 g/dl (14.0-18.0); Imm Gran Abs Auto 0.02 X10*3/uL (0.00-0.03); Imm Gran Pct Auto 0.3 % (0.0-0.4); Lymphocytes Absolute Auto 1.8 X10*3/uL (1.2-4.9); Lymphocytes Percent Auto 23.9 % (20-40); Mean Corpuscular HGB Conc 34.3 g/dl (31.0-36.0); Mean Corpuscular Hemoglobin 31.4 pg (27.0-33.0); Mean Corpuscular Volume 91.5 fL (80.0-98.0); Mean Platelet Volume 11.6 fL (9.4-12.4); Monocytes Absolute Auto 0.9 X10*3/uL (0.1-1.2); Monocytes Percent Auto 11.2 % (2-11); Neutrophils Absolute Auto 4.7 x10*3/uL (2.0-8.3); Neutrophils Percent Auto 60.9 % (45-73); Platelet Count 181 X10*3/uL (160-400); Red Blood Count 4.33 X10*6/uL (4.60-5.80); Red Cell Distribution Width 12.2 % (11.0-16.0); White Blood Count 7.7 X10*3/uL (4.8-10.8)
[2021-10-21 15:12] LABS: Estimated Average Glucose 123 mg/dL; Hemoglobin A1c % 5.9 %
[2021-10-21 15:33] LABS: Alanine Aminotransferase 36 U/L (0-40); Albumin Level 4.1 g/dL (3.5-5.0); Alkaline Phosphatase 94 U/L (39-117); Anion Gap 14 (12-20); Aspartate Amino Transferase 24 U/L (5-37); Bilirubin Total 0.8 mg/dL (0.0-1.0); Blood Urea Nitrogen 32 mg/dL (9-16); Carbon Dioxide 23 mmol/L (22-29); Chloride 105 mmol/L (96-108); Cholesterol 79 mg/dL; Estimated Glomerular Filt Rate 46; Glucose Random 117 mg/dL (60-115); HDL Cholesterol 27 mg/dL; LDL Cholesterol Calculated 14 mg/dl; Sodium 138 mmol/L (135-145); Total Protein 6.1 g/dL (6.5-8.0); Triglycerides 190 mg/dL
[2021-10-21 15:49] LABS: Free T4 (Free Thyroxine) 1.14 ng/dL (0.71-1.85); Prostate Specific Antigen Scr 0.49 ng/mL (<0.05-4.0); Thyroid Stimulating Hormone 0.68 uIU/mL (0.32-4.0)
[2021-10-21 16:00] LABS: Vitamin B12 283 pg/mL (200-900)
[2021-10-21 16:03] LABS: Microalbum/Creatinine Ratio Ur 78.2 ug/mg cr
== END 2021-10-21 14:06 | disposition home or self-care (01) ==
LOC: HO.LAB 14:05
PROVIDERS: Absent Provider Internal Medicine; PCP Internal Medicine; Visit Provider Internal Medicine
DX: Z12.5 Encounter for screening for malignant neoplasm of prostate (principal); Z20.822 Contact with and (suspected) exposure to COVID-19; E11.65 Type 2 diabetes mellitus with hyperglycemia; E78.00 Pure hypercholesterolemia, unspecified; I10 Essential (primary) hypertension
CPT/HCPCS: 36415; 80053; 80061; 82043; 82607; 82746; 83036; 84153; 84439; 84443; 85025; 87635; C9803

== ENCOUNTER → 2021-10-30 13:02 | Outpatient (BNVA) | payer BC, SELFPAY | PROVIDERS: PCP Internal Medicine; Referring Provider Internal Medicine; Visit Provider Nurse Practitioner Family | DX: Z13.89 Encounter for screening for other disorder (principal) ==

== ENCOUNTER 2021-11-04 16:09 | Outpatient (REF) | payer BC, SELFPAY ==
[2021-11-04 17:46] LABS: Anion Gap 14 (12-20); Blood Urea Nitrogen 16 mg/dL (9-16); Calcium 9.6 mg/dL (8.4-10.2); Carbon Dioxide 26 mmol/L (22-29); Chloride 108 mmol/L (96-108); Estimated Glomerular Filt Rate > 60; Potassium 4.3 mmol/L (3.3-5.1); Sodium 144 mmol/L (135-145)
[2021-11-04 18:08] LABS: Glucose Random 42 mg/dL (60-115)
[2021-11-04 18:19] LABS: Creatinine Urine 175.48 mg/dL
== END 2021-11-04 16:10 | disposition home or self-care (01) ==
LOC: HO.LAB 16:09
PROVIDERS: PCP Internal Medicine; Visit Provider Internal Medicine
DX: E11.65 Type 2 diabetes mellitus with hyperglycemia (principal); N28.9 Disorder of kidney and ureter, unspecified
CPT/HCPCS: 36415; 80048

== ENCOUNTER → 2022-08-27 15:13 | Outpatient (BNVA) | payer BC, SELFPAY | PROVIDERS: PCP Internal Medicine; Referring Provider Internal Medicine; Visit Provider Internal Medicine | DX: I25.10 Atherosclerotic heart disease of native coronary artery without angina pectoris (principal); I10 Essential (primary) hypertension | CPT/HCPCS: 93005 ==

== ENCOUNTER 2023-03-11 12:26 | Outpatient (AMB) | payer SELFPAY ==
--- NOTE | 2023-03-11 12:33 | MHC.PC.OV ---
Vital Signs 03/11/23 12:34 Height 5 ft 7 in Weight 200 lb 4 oz BMI 31.4 BP 132/62 Blood Pressure Location Lt brachial Position Sitting Pulse 73 Pulse Source Pulse Oximeter Pulse Oximetry (%) 95 Oxygen Delivery Method Room Air Intake Visit Reasons: [facility] 01/30/23 Bleeding Ulcer Night Cleaner Required: No Accompanied by: Self / Same As Patient Allergies Influenza Virus Vaccines Allergy (Intermediate, Verified 03/11/23 12:56) Unknown Medication List - Last Reconciled 03/11/23 by Barber Solitario MD albuterol sulfate 90 mcg/actuation 2 puffs inhalation QID PRN alprazolam 0.25 mg PO BID PRN 90 days amlodipine 10 mg PO DAILY aspirin (Adult Aspirin Regimen) 81 mg PO DAILY atorvastatin 80 mg PO BEDTIME 90 days blood pressure monitor As directed empagliflozin (Jardiance) 10 mg PO DAILY isosorbide mononitrate ER 120 mg PO DAILY metformin 1,000 mg PO BID 90 days multivitamin 1 tab PO DAILY omeprazole 40 mg PO DAILY sertraline 50 mg PO DAILY 90 days spironolacton-hydrochlorothiaz 25-25 mg 1 tab PO DAILY Tobacco use date assessed: 03/11/23 Fall risk assessment: No Falls in past year Last assessed Fall Risk: 03/11/23 Dental Screening Dental Screen Date: 03/11/23 Did you have a dental visit in the last 12 months?: No Did you have a dental problem in the last 6 months where you did not have access to dental care?: No Was dental information given to patient?: No HPI [facility] 01/30/23 Bleeding Ulcer HPI Details Patient comes in today for his [facility] follow up visit He was admitted to [facility] for a few days about a month ago for GI bleeding He was found to have a bleeding duodenal ulcer on endoscopy and underwent injection sclerotherapy with epinephrine and hemoclipping He was then discharged home on Pantoprazole 40 mg QD but patient states that he could not afford the medication (has no prescription insurance coverage) and switched himself over to OTC Omeprazole 20 mg and is taking 2 capsules (40 mg) QD States that he has been doing well since with no recurrence of GI bleeding and that he only occasionally has symptoms of heartburn/reflux nowadays He denies any headaches or dizziness Denies any chest pains, no SOB No nausea/vomiting, no abdominal pain No change in bowel habits noted [facility] Medical History (Updated 03/11/23 @ 14:00 by Barber Solitario MD) Obesity (BMI 30-39.9) Anxiety and depression Asthma Bleeding duodenal ulcer Smoking Abnormal nuclear stress test Hypertensive urgency Actinic keratoses LFT elevation Essential hypertension Atherosclerotic cardiovascular disease Glaucoma Type 2 diabetes mellitus with hyperglycemia Obstructive sleep apnea Tobacco abuse CAD (coronary artery disease) Aortic stenosis Hypercholesterolemia Obesity Surgical History Status post aortic valve replacement with bioprosthetic valve Status post aorto-coronary artery bypass graft History of lumbar surgery Aortic valve replaced Family History Father CVD (cardiovascular disease) Cerebral hemorrhage Mother Medical history unknown Other Mental health disorder Substance use disorder Social History Household Members: Spouse and Children Housing: House Alcohol intake: current Alcohol intake frequency: holidays/special occasions only Patient Tobacco Use Status: Current everyday Tobacco user Tobacco use type: Cigarette Cigarette Packs Per Day: 0.5 Cigarettes Per Day: 10 Years Smoked: stopped 01/2020 e-Cigarette/Vaping Use: Never Used Second Hand Smoke Exposure: Yes service: No Current occupational status: employed Cognitive needs: No Hearing needs: No Vision needs: Yes (Glasses) Questionnaire PHQ-9 Over the last 2 weeks, how often have you been bothered by any of the following problems? 1. Little interest or pleasure in doing things: not at all 2. Feeling down, depressed, or hopeless: not at all 3. Trouble falling or staying asleep, or sleeping too much: not at all 4. Feeling tired or having little energy: not at all 5. Poor appetite or overeating: not at all 6. Feeling bad about yourself - or that you are a failure or have let yourself or your family down: not at all 7. Trouble concentrating on things, such as reading the newspaper or watching television: not at all 8. Moving or speaking so slowly that other people could have noticed. Or the opposite - being so fidgety or restless that you have been moving around a lot more than usual: not at all 9. Thoughts that you would be better off or of hurting yourself in some way: not at all Total score: 0 Depression Screening Interpretation: Negative Depression Screening Done: Yes 40253 - PHQ-9 Billing: Yes Source: Developed by Drs. Shine Ly, Nohelia Mitchell, Randell Evans and colleagues, with an educational claribel from [employer]. Thrive Questionnaire Date Thrive assessed: 03/11/23 I am a: Patient What is your living situation today?: I have a steady place to live Within the past 12 months, did the food you bought not last and you didn't have the money to get more?: Never true Within the past 12 months, did you worry whether your food would run out before you got money to buy more?: Never true Do you have trouble paying for medicines?: No Do you have trouble getting transportation to medical appointments?: No Do you have trouble paying your heating and electricity bill?: No Do you have trouble taking care of your child, family member or friend?: No Do you have trouble with day-to-day activities such as bathing, preparing meals, shopping, managing finances, etc.?: No Are you currently unemployed and looking for a job?: No Are you interested in more education?: No Please select the resources that you would like help with: None Currently or been in a relationship where the following occur: no concerns reported AUDIT C Alcohol Use Questionnaire (AUDIT-C) 1. How often do you have a drink containing alcohol?: Monthly or less 2. How many drinks containing alcohol do you have on a typical day when you are drinking?: 1 or 2 3. How often do you have six or more drinks on one occasion?: Never Total Score: 1 Score Reviewed/Action Taken: Yes RANCHO-7 AMB Questionnaire RANCHO-7 Date RANCHO - 7 assessed: 03/11/23 Feeling nervous, anxious, or on edge: 0 = Not at all Not being able to stop or control worryin = Not at all Worrying too much about different things: 0 = Not at all Trouble relaxin = Not at all Being so restless that it is hard to sit still: 0 = Not at all Becoming easily annoyed or irritable: 0 = Not at all Feeling afraid as if something awful might happen: 0 = Not at all Total RANCHO-7 score (0-4 normal; 5-9 mild; 10-14 moderate; 15-21 severe): 0 Source: Developed by Drs. Shine Ly, Nohelia Mitchell, Randell Evans and colleagues, with an educational claribel from [employer]. Review of Systems Const Denies chills, Denies fatigue, Denies fever(s) and Denies headache(s) ENT Denies dysphagia, Denies dizziness, Denies otalgia, Denies headache(s), Denies neck pain, Denies odynophagia and Denies sore throat Card Denies chest pain, Denies palpitations and Denies dyspnea Resp Denies cough and Denies dyspnea GI Denies abdominal pain, Denies hematochezia, Denies constipation, Denies dysphagia, Denies heartburn, Denies diarrhea, Denies nausea, Denies odynophagia and Denies vomiting Denies dysuria, Denies nocturia and Denies urinary frequency Musc Denies neck pain Neuro Denies dizziness and Denies headache(s) Endo Denies fatigue and Denies palpitations Physical exam (Primary Care) Vital Signs: Last Vital Signs Pulse 73 03/11/23 12:34 BP 132/62 03/11/23 12:34 Pulse Ox 95 03/11/23 12:34 Oxygen Delivery Method Room Air 03/11/23 12:34 BMI result Body Mass Index 31.4 Tobacco/Smoking Status: Tobacco use Status Tobacco use date assessed 03/11/23 03/11/23 12:46 Patient Tobacco Use Status Current everyday Tobacco 03/11/23 12:46 Tobacco use type Cigarette 03/11/23 12:46 e-Cigarette/Vaping Use Never Used 03/11/23 12:46 PHQ-9: PHQ-9 Score PHQ-9: Total score 0 03/11/23 12:46 Depression Screening Interpretation: Negative Thrive Assessment: Date of Thrive Assessment Date Thrive assessed 03/11/23 03/11/23 12:46 Currently or been in a relationship where the following occur: no concerns reported Const General: no acute distress and alert Neck Neck: Yes no lymphadenopathy and Yes supple Resp Auscultation: clear to auscultation bilaterally, no rales and no wheezes Cardio Rate: regular rate Rhythm: regular rhythm Heart sounds: no murmurs GI Palpation (GI): Soft to palpation and nontender Auscultation: normal bowel sounds Extrem General: Yes no clubbing, cyanosis or edema Assessment and Plan Assessment & Plan (1) Bleeding duodenal ulcer: Comment: S/P injection sclerotherapy with epi and hemoclipping - 01/29/2023 ([facility]) Code(s): K26.4 - Chronic or unspecified duodenal ulcer with hemorrhage Plan: S/P endoscopy and injection sclerotherapy with adrenaline (epi) and hemoclipping at [facility] on 01/29/23 He reportedly did not complete 72 hours of IV PPI after endoscopic treatment of his ulcer due to insurance issues and was discharged home on oral Pantoprazole 40 mg BID x 2 weeks BUT patient could not afford the Rx (he has no prescription insurance) and switched himself over to OTC Omeprazole 20 mg 2 capsules (40 mg) QD, which he is currently still on He has not followed up with GI and apparently has no GI appointment scheduled Advised that he SHOULD follow up with GI regularly as he will likely need repeat EGD for endoscopic follow up of his duodenal ulcer to ensure healing - will refer him to [facility] for follow up and further management Dietary restrictions reinforced (2) Anemia: Code(s): D64.9 - Anemia, unspecified Qualifiers: Anemia type: other cause Other causes of anemia: acute posthemorrhagic Qualified Code(s): D62 - Acute posthemorrhagic anemia Plan: H/H was at 8.8/25.4 when he was discharged from [facility] about a month ago, likely due to his recent GI bleeding then Patient states that he has not had any GI bleeding since and he has not seen any blood in his stool or had black, tarry stool over the past month or so Will recheck his CBC in 3 months (3) Essential hypertension: Code(s): I10 - Essential (primary) hypertension Plan: Reinforced low sodium diet - goal is systolic BP of 120 mm or less Continue Amlodipine 10 mg QD and Spironolactone-HCTZ 25-25 mg QD (4) Type 2 diabetes mellitus with hyperglycemia: Comment: eye doctor 2021 Dr. Ruiz Code(s): E11.65 - Type 2 diabetes mellitus with hyperglycemia Qualifiers: Diabetes mellitus intermediate insulin use: without manager intermediate use Qualified Code(s): E11.65 - Type 2 diabetes mellitus with hyperglycemia Plan: In-office HgbA1c was at 8.1% when last checked back in July 2022 - goal is at least <7.0% Reinforced diabetic diet Continue Metformin 1000 mg BID and Jardiance 10 mg QD Will recheck his labs and HgbA1c in 3 months for follow up (5) CAD (coronary artery disease): Comment: September 2019 normal LV with impaired relaxation mild dilated atrium, moderate to severe aortic stenosis one cm sq, nuclear stress inferior wall ischemia August 2018. Status post valve replacement and coronary artery bypass Code(s): I25.10 - Atherosclerotic heart disease of belk[place]ski coronary artery without angina pectoris Qualifiers: Coronary Disease-Associated Artery/Lesion type: belkofski artery [place] vs. transplanted heart: belkofski heart Associated angina: without angina Qualified Code(s): I25.10 - Atherosclerotic heart disease of [place]ski coronary artery without angina pectoris Plan: Continue Aspirin 81 mg QD and Isosorbide Mononitrate ER 120 mg QD Patient remains asymptomatic from a cardiac standpoint Follow up with cardiology as scheduled (6) Hypercholesterolemia: Code(s): E78.00 - Pure hypercholesterolemia, unspecified Plan: Reinforced low cholesterol diet Continue Atorvastatin 80 mg QD Will recheck his fasting lipids and labs in 3 months for follow up (7) Asthma: Code(s): J45.909 - Unspecified asthma, uncomplicated Qualifiers: Asthma severity: mild Asthma persistence: intermittent Asthma complication type: uncomplicated Qualified Code(s): J45.20 - Mild intermittent asthma, uncomplicated Plan: Stable Continue Albuterol HFA 1 to 2 inhalations Q 6 hours PRN (8) Obstructive sleep apnea: Comment: Cannot tolerate CPAP 07/2021 Code(s): G47.33 - Obstructive sleep apnea (adult) (pediatric) Plan: Follow up with Sleep Medicine as scheduled (9) Anxiety and depression: Code(s): F41.9 - Anxiety disorder, unspecified; F32.A - Depression, unspecified Plan: Continue Alprazolam 0.25 mg BID PRN and Sertraline 50 mg QD (10) Obesity (BMI 30-39.9): Code(s): E66.9 - Obesity, unspecified Plan: Reinforced diet/exercise as tolerated/lose weight Plan Follow up with PCP in 3 months Orders: Orders Comprehensive [place]. Panel Fast 3 Months E78.00 - Pure hypercholesterolemia, unspecified Microalbumin, Random (w Creat) 3 Months E11.9 - Type 2 diabetes mellitus without complications TSH reflex Free T4 3 Months E78.00 - Pure hypercholesterolemia, unspecified Complete Blood Count Auto Diff 3 Months I10 - Essential (primary) hypertension Lipid Panel 3 Months E78.00 - Pure hypercholesterolemia, unspecified Hemoglobin A1c 3 Months E11.9 - Type 2 diabetes mellitus without complications UA CC w/rflx Micro + Cult 3 Months R30.0 - Dysuria Vitamin D 25-OH Total 3 Months E55.9 - Vitamin D deficiency, unspecified Referrals Gastroenterology Referral K26.4 - Chronic or unspecified duodenal ulcer with hemorrhage Coding Level of Care Code Est Pt Level 4 (78444) Diagnoses Bleeding duodenal ulcer K26.4 Anemia due to acute blood loss D62 Anemia type: other cause Other causes of anemia: acute posthemorrhagic Essential hypertension I10 Type 2 diabetes mellitus with hyperglycemia, without long-term current use of insulin E11.65 Diabetes mellitus manager intermediate insulin use: without intermediate use Coronary artery disease involving belkofski coronary artery of belk[place]ski heart without angina pectoris I25.10 Coronary Disease-Associated Artery/Lesion type: belkofski artery [place] vs. transplanted heart: belk[place]ski heart Associated angina: without angina Hypercholesterolemia E78.00 Mild intermittent asthma without complication J45.20 Asthma severity: mild Asthma persistence: intermittent Asthma complication type: uncomplicated Obstructive sleep apnea G47.33 Anxiety and depression F41.9; F32.A Obesity (BMI 30-39.9) E66.9
[2023-03-11 12:34] VITALS: BP 132/62; PULSE 73; O2SAT 95; BMI 31.4
== END 2023-03-11 13:10 | disposition home or self-care (01) ==
PROVIDERS: PCP Internal Medicine; Visit Provider Internal Medicine
DX: K26.4 Chronic or unspecified duodenal ulcer with hemorrhage (principal); D62 Acute posthemorrhagic anemia; I10 Essential (primary) hypertension; E11.65 Type 2 diabetes mellitus with hyperglycemia; I25.10 Atherosclerotic heart disease of native coronary artery without angina pectoris; E78.00 Pure hypercholesterolemia, unspecified; J45.20 Mild intermittent asthma, uncomplicated; G47.33 Obstructive sleep apnea (adult) (pediatric); F41.9 Anxiety disorder, unspecified; F32.A Depression, unspecified; E66.9 Obesity, unspecified
CPT/HCPCS: 99214

== ENCOUNTER 2023-06-25 14:38 | Outpatient (AMB) | payer MEDICARE, SELFPAY ==
[2023-06-25 14:42] VITALS: BP 160/68; PULSE 75; O2SAT 95; BMI 31.3
--- NOTE | 2023-06-25 14:42 | A.OFFPC_ITS ---
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 Allergies Influenza Virus Vaccines Allergy (Intermediate, Verified 06/25/23 14:44) Unknown Medication List - Last Reconciled 06/25/23 by Traa Novak MD albuterol sulfate 90 mcg/actuation 2 puffs inhalation QID PRN alprazolam 0.25 mg PO BID PRN 90 days amlodipine 10 mg PO DAILY aspirin (Adult Aspirin Regimen) 81 mg PO DAILY atorvastatin 80 mg PO BEDTIME 90 days blood pressure monitor As directed empagliflozin (Jardiance) 10 mg PO DAILY isosorbide mononitrate ER 120 mg PO DAILY metformin 1,000 mg PO BID 90 days multivitamin 1 tab PO DAILY nicotine 1 patch transdermal DAILY nicotine (polacrilex) 2 mg buccal Q2H omeprazole 40 mg PO DAILY sertraline 50 mg PO DAILY 90 days spironolacton-hydrochlorothiaz 25-25 mg 1 tab PO DAILY Tobacco use date assessed: 03/11/23 Fall risk assessment: No Falls in past year Last assessed Fall Risk: 06/25/23 Dental Screening Dental Screen Date: 06/25/23 Did you have a dental visit in the last 12 months?: No Did you have a dental problem in the last 6 months where you did not have access to dental care?: No HPI duodenal ulcer, hyperlipidemia, HTN HPI Details 67-year-old obese male smoker with diabe jaleesa mellitus obstructive sleep apnea coronary artery disease aortic stenosis hypercholesterolemia generalized anxiety disorder hypertension last seen in July 2022. Patient is here for follow-up. Patient was seen by my colleague in March 2023 after being in the hospital for bleeding ulcer January 2023 had EGD and underwent injection sclerotherapy discharge with pantoprazole 40 mg once a day switch to omeprazole 20 mg 2 capsules once a day. Patient was last seen by Cardiology in July 2022 for the coronary artery disease [facility] Medical History (Updated 03/11/23 @ 14:00 by Barber Solitario MD) Obesity (BMI 30-39.9) Anxiety and depression Asthma Bleeding duodenal ulcer Smoking Abnormal nuclear stress test Hypertensive urgency Actinic keratoses LFT elevation Essential hypertension Atherosclerotic cardiovascular disease Glaucoma Type 2 diabetes mellitus with hyperglycemia Obstructive sleep apnea Tobacco abuse CAD (coronary artery disease) Aortic stenosis Hypercholesterolemia Obesity Surgical History (Updated 03/11/23 @ 14:07 by Barber Solitario MD) History of endoscopic gastrointestinal surgery (~01/29/23) Status post aortic valve replacement with bioprosthetic valve Status post aorto-coronary artery bypass graft History of lumbar surgery Aortic valve replaced Family History Father CVD (cardiovascular disease) Cerebral hemorrhage Mother Medical history unknown Other Mental health disorder Substance use disorder Social History Household Members: Spouse and Children Housing: House Alcohol intake: current Alcohol intake frequency: holidays/special occasions only Patient Tobacco Use Status: Current everyday Tobacco user Tobacco use type: Cigarette Cigarette Packs Per Day: 0.5 Cigarettes Per Day: 10 Years Smoked: stopped 01/2020 e-Cigarette/Vaping Use: Never Used Second Hand Smoke Exposure: Yes service: No Current occupational status: employed Cognitive needs: No Hearing needs: No Vision needs: Yes (Glasses) Questionnaire Thrive Questionnaire Date Thrive assessed: 06/25/23 I am a: Patient What is your living situation today?: I have a steady place to live Within the past 12 months, did the food you bought not last and you didn't have the money to get more?: Never true Within the past 12 months, did you worry whether your food would run out before you got money to buy more?: Never true Do you have trouble paying for medicines?: No Do you have trouble getting transportation to medical appointments?: No Do you have trouble paying your heating and electricity bill?: No Do you have trouble taking care of your child, family member or friend?: No Do you have trouble with day-to-day activities such as bathing, preparing meals, shopping, managing finances, etc.?: No Are you currently unemployed and looking for a job?: No Are you interested in more education?: No Please select the resources that you would like help with: None THRIVE Score: 0 RANCHO-7 AMB Questionnaire RANCHO-7 Date RANCHO - 7 assessed: 06/25/23 Source: Developed by Drs. Shine Ly, Nohelia Mitchell, Randell Evans and colleagues, with an educational claribel from [employer] Physical exam (Primary Care) Vital Signs: Last Vital Signs Pulse 75 06/25/23 14:42 BP 160/68 H 06/25/23 14:42 Pulse Ox 95 06/25/23 14:42 Oxygen Delivery Method Room Air 06/25/23 14:42 BMI result Body Mass Index 31.3 Tobacco/Smoking Status: Tobacco use Status Tobacco use date assessed 03/11/23 06/25/23 14:47 Patient Tobacco Use Status Current everyday Tobacco 06/25/23 14:47 Tobacco use type Cigarette 06/25/23 14:47 e-Cigarette/Vaping Use Never Used 06/25/23 14:47 Thrive Assessment: Date of Thrive Assessment Date Thrive assessed 06/25/23 06/25/23 14:47 Const General: alert; No acute distress Eyes Conjunctivae: conjunctivae normal Resp Auscultation: clear to auscultation bilaterally Cardio Rate: regular rate Rhythm: regular rhythm GI Inspection: Yes normal to inspection Extrem General: Yes normal to inspection and No edema Results AMB Hemoglobin A1c AMB Hemoglobin A1c 8.0 % Last Edit by MADHAVI Glover on 06/25/23 14:53 Results Reviewed Results Reviewed: Laboratory Last Values Hgb A1c (Clinic) 8.0 % (4.0-6.0) H 06/25/23 14:26 Assessment and Plan Assessment & Plan (1) Obesity (BMI 30-39.9): Code(s): E66.9 - Obesity, unspecified Plan: Diet and exercise (2) Type 2 diabetes mellitus with hyperglycemia: Comment: eye doctor 2021 Dr. 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 Hemoglobin A1c goal of less than 7.0 patient is on metformin a 1000 mg twice a day Jardiance 10 mg once a day (3) Tobacco abuse: Code(s): Z72.0 - Tobacco use Plan: Strongly advised to stop smoking (4) CAD (coronary artery disease): Comment: September 2019 normal LV with impaired relaxation mild dilated atrium, moderate to severe aortic stenosis one cm sq, nuclear stress inferior wall ischemia August 2018. Status post valve replacement and coronary artery bypass Code(s): I25.10 - Atherosclerotic heart disease of [place] coronary artery without angina pectoris Qualifiers: Coronary Disease-Associated Artery/Lesion type: [place] artery [place] vs. transplanted heart: [place] heart Associated angina: without angina Qualified Code(s): I25.10 - Atherosclerotic heart disease of [place] coronary [place] without angina pectoris Plan: Control the cholesterol, weight, blood pressure, diabetes presently on aspirin 81 mg once a day and strongly advised to stop smoking! (5) Aortic stenosis: Comment: Status post aortic valve replacement with bioprosthetic valve Code(s): I35.0 - Nonrheumatic aortic (valve) stenosis Qualifiers: Cardiac valve disease etiology: nonrheumatic Qualified Code(s): I35.0 - Nonrheumatic aortic (valve) stenosis Plan: Continue to follow-up. (6) Hypercholesterolemia: Code(s): E78.00 - Pure hypercholesterolemia, unspecified Plan: Avoid fried foods, chicken skin, eggs, butter margarine, pastries and meat. Be it pork or beef they have a lot of cholesterol LDL goal of less than 70 and triglyceride of less than 150 patient on atorvastatin 80 mg once a day September 2021 last blood work will need blood work (7) Bleeding duodenal ulcer: Comment: S/P injection sclerotherapy with epi and hemoclipping - 01/29/2023 ([facility]) Code(s): K26.4 - Chronic or unspecified duodenal ulcer with hemorrhage Plan: Stop smoking! Continue with omeprazole and needs to follow-up with Gastroenterology (8) Generalized anxiety disorder: Code(s): F41.1 - Generalized anxiety disorder Plan: Continue with present medication and discussion about counseling (9) Essential hypertension: Code(s): I10 - Essential (primary) hypertension Plan: start on metoprolol for BP Orders: Orders Vitamin D 25-OH Total Today E55.9 - Vitamin D deficiency, unspecified AMB Hemoglobin A1c Today E11.65 - Type 2 diabetes mellitus with hyperglycemia Referrals Gastroenterology Referral K26.4 - Chronic or unspecified duodenal ulcer with hemorrhage Medications: New nicotine 1 patch transdermal DAILY 28 ea 0RF Z72.0 - Tobacco use metoprolol succinate ER 25 mg PO DAILY 30 tabs 3RF I10 - Essential (primary) hypertension nicotine (polacrilex) 2 mg buccal Q2H 110 ea 0RF Z72.0 - Tobacco use Refilled empagliflozin (Jardiance) 10 mg PO DAILY 30 tabs 3RF E11.65 - Type 2 diabetes mellitus with hyperglycemia alprazolam 0.25 mg PO BID 90 days PRN 90 tabs 0RF anxiety R79.89 - Other specified abnormal findings of blood chemistry Coding Level of Care Code Est Pt Level 4 (27210) Diagnoses Obesity (BMI 30-39.9) E66.9 Type 2 diabetes mellitus with hyperglycemia, without long-term current use of insulin E11.65 Diabetes mellitus vermin exterminator insulin use: without retirement use Tobacco abuse Z72.0 Coronary artery disease involving [place] coronary artery of [place] heart without angina pectoris I25.10 Coronary Disease-Associated Artery/Lesion type: [place] artery [place] vs. transplanted heart: [place] heart Associated angina: without angina Nonrheumatic aortic valve stenosis I35.0 Cardiac valve disease etiology: nonrheumatic Hypercholesterolemia E78.00 Bleeding duodenal ulcer K26.4 Generalized anxiety disorder F41.1 Essential hypertension I10
[2023-06-25 15:20] VITALS: BP 140/70
== END 2023-06-25 15:32 | disposition home or self-care (01) ==
PROVIDERS: PCP Internal Medicine; Visit Provider Internal Medicine
DX: E11.65 Type 2 diabetes mellitus with hyperglycemia (principal); E66.9 Obesity, unspecified; Z68.31 Body mass index [BMI] 31.0-31.9, adult; Z72.0 Tobacco use; I25.10 Atherosclerotic heart disease of native coronary artery without angina pectoris; I35.0 Nonrheumatic aortic (valve) stenosis; E78.00 Pure hypercholesterolemia, unspecified; K26.4 Chronic or unspecified duodenal ulcer with hemorrhage; F41.1 Generalized anxiety disorder; I10 Essential (primary) hypertension
CPT/HCPCS: 83036; 99214

== ENCOUNTER 2023-08-03 13:55 | Outpatient (AMB) | payer MEDICARE, SELFPAY ==
--- NOTE | 2023-08-03 13:56 | A.OFFVIS_ITS ---
Intake Vital Signs 08/03/23 13:57 Height 5 ft 7 in Weight 196 lb 3.382 oz BMI 30.7 BP 119/59 L Blood Pressure Location Lt brachial Position Sitting Pulse 77 Intake Visit Reasons: unspecified duodenal ulcer w hemorrhage Intake Note: Ney presents in the office as a new patient for duodenal ulcer w/ hemorrhage. CC: He states that he feel 96%. He states stomach is feeling good - no charcoal stools. He has been having normal stools. He is on the GERD medication and he still gets GERD but he states that it is the food that he eats. 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 Pt here with his Cristiana. Briefly, patient was seen at [facility] at the end of December for hematemesis and melena with a drop in Hb from 13.3 to 8.8. EGD 01/29 (Dr Lynn) was found to have a bleeding duodenal ulcer status post hemoclip placement. Unfortunately, due to a lapse in insurance, he was not able to stay in the hospital longer and was discharged within 24 hours of the upper endoscopy. Since then, he reports no upper gastrointestinal symptoms to include any abdominal pain, nausea, vomiting, loss of appetite. Reports stool are normal and brown. Cont on omeprazole. Continues to smoke. He is on baby aspirin. Does not take any NSAIDs. Last colonoscopy 2015 (Dr. Truong) repeat recommended in 10 years. Has not been seen by Cardiology in a year but does not report any anginal sx either. [facility] Medical History Obesity (BMI 30-39.9) Anxiety and depression Asthma Bleeding duodenal ulcer Smoking Abnormal nuclear stress test Hypertensive urgency Actinic keratoses LFT elevation Essential hypertension Atherosclerotic cardiovascular disease Glaucoma Type 2 diabetes mellitus with hyperglycemia Obstructive sleep apnea Tobacco abuse CAD (coronary artery disease) Aortic stenosis Hypercholesterolemia Obesity Surgical History History of endoscopic gastrointestinal surgery (~01/29/23) Status post aortic valve replacement with bioprosthetic valve Status post aorto-coronary artery bypass graft History of lumbar surgery Aortic valve replaced Family History (Updated 08/03/23 @ 14:00 by MADHAVI Storey) Father CVD (cardiovascular disease) Cerebral hemorrhage Mother Medical history unknown Brother Colon cancer Other Mental health disorder Substance use disorder Social History Household Members: Spouse and Children Housing: House Alcohol intake: current Alcohol intake frequency: holidays/special occasions only Patient Tobacco Use Status: Current everyday Tobacco user Tobacco use type: Cigarette Cigarette Packs Per Day: 0.5 Cigarettes Per Day: 10 Years Smoked: stopped 01/2020 e-Cigarette/Vaping Use: Never Used Second Hand Smoke Exposure: Yes service: No Current occupational status: employed Cognitive needs: No Hearing needs: No Vision needs: Yes (Glasses) Review of Systems Const All systems reviewed & are unremarkable except as noted in HPI and below Physical Exam Vital Signs: Last Vital Signs Pulse 77 08/03/23 13:57 BP 119/59 L 08/03/23 13:57 BMI result Body Mass Index 30.7 Const General: cooperative and healthy appearing Orientation/consciousness: patient oriented x3 Resp Effort & Inspection: normal respiratory effort GI Inspection: Yes normal to inspection Neuro General: patient oriented x3 and gait normal Assessment & Plan Assessment & Plan (1) Anemia: Code(s): D64.9 - Anemia, unspecified Qualifiers: Anemia type: other cause Other causes of anemia: acute posthemorrhagic Qualified Code(s): D62 - Acute posthemorrhagic anemia (2) Bleeding duodenal ulcer: Comment: S/P injection sclerotherapy with epi and hemoclipping - 01/29/2023 ([facility]) Code(s): K26.4 - Chronic or unspecified duodenal ulcer with hemorrhage (3) Tobacco abuse: Code(s): Z72.0 - Tobacco use (4) CAD (coronary artery disease): Comment: September 2019 normal LV with impaired relaxation mild dilated atrium, moderate to severe aortic stenosis one cm sq, nuclear stress inferior wall ischemia August 2018. Status post valve replacement and coronary artery bypass Code(s): I25.10 - Atherosclerotic heart disease of [place] coronary artery without angina pectoris Qualifiers: Coronary Disease-Associated Artery/Lesion type: [place] artery [place] vs. transplanted heart: [place] heart Associated angina: without angina Qualified Code(s): I25.10 - Atherosclerotic heart disease of [place] coronary artery without angina pectoris (5) Aortic stenosis: Comment: Status post aortic valve replacement with bioprosthetic valve Code(s): I35.0 - Nonrheumatic aortic (valve) stenosis Qualifiers: Cardiac valve disease etiology: nonrheumatic Qualified Code(s): I35.0 - Nonrheumatic aortic (valve) stenosis Plan Reviewed with the pt that typically follow up EGD not indicated to document healing of duodenal ulcer unless has sx or persistent anemia. Plan: - Check CBC and ferritin (labs ordered by PCP) - If evidence of ongoing SHIRIN will discuss endoscopic evaluation - Otherwise follow up colo in 2025 for asymptomatic colorectal screening - Pt planning to move to [place] in 1-2 months so was urged to get blood work done at the soonest as well as to see Cardiology so procedure may be booked if indicated. Follow up contingent on above Coding Level of Care Code New Pt Level 4 (09103) Diagnoses Anemia due to acute blood loss D62 Anemia type: other cause Other causes of anemia: acute posthemorrhagic Bleeding duodenal ulcer K26.4 Tobacco abuse Z72.0 Coronary artery disease involving [place] coronary artery of [place] heart without angina pectoris I25.10 Coronary Disease-Associated Artery/Lesion type: [place] artery [place] vs. transplanted heart: [place] heart Associated angina: without angina Nonrheumatic aortic valve stenosis I35.0 Cardiac valve disease etiology: nonrheumatic
[2023-08-03 13:57] VITALS: BP 119/59; PULSE 77; BMI 30.7
== END 2023-08-03 15:26 | disposition home or self-care (01) ==
PROVIDERS: PCP Internal Medicine; Visit Provider Internal Medicine
DX: D62 Acute posthemorrhagic anemia (principal); K26.4 Chronic or unspecified duodenal ulcer with hemorrhage; Z72.0 Tobacco use; I25.10 Atherosclerotic heart disease of native coronary artery without angina pectoris; I35.0 Nonrheumatic aortic (valve) stenosis
CPT/HCPCS: 99204

== ENCOUNTER → 2023-08-03 13:55 | Outpatient (BNVA) | payer MEDICARE, SELFPAY | PROVIDERS: PCP Internal Medicine; Visit Provider Internal Medicine | DX: D62 Acute posthemorrhagic anemia (principal); K62.4 Stenosis of anus and rectum; I25.10 Atherosclerotic heart disease of native coronary artery without angina pectoris; I35.0 Nonrheumatic aortic (valve) stenosis; F17.210 Nicotine dependence, cigarettes, uncomplicated | CPT/HCPCS: 99202 ==

== ENCOUNTER 2023-08-04 10:33 | Outpatient (REF) | payer MEDICARE, SELFPAY ==
[2023-08-04 10:57] LABS: MANUAL DIFF FLAG NO
[2023-08-04 11:58] LABS: Basophils Absolute Auto 0.1 X10*3/uL (0.0-0.2); Basophils Percent Auto 1.1 % (0-2); Eosinophils Absolute Auto 0.2 X10*3/uL (0.0-0.4); Eosinophils Percent Auto 4.4 % (0-4); Hematocrit 36.8 % (42.0-52.0); Hemoglobin 11.3 g/dl (14.0-18.0); Imm Gran Abs Auto 0.03 X10*3/uL (0.00-0.03); Imm Gran Pct Auto 0.6 % (0.0-0.4); Immature Retic Fraction 26.7 % (2.3-13.4); Lymphocytes Absolute Auto 1.5 X10*3/uL (1.2-4.9); Lymphocytes Percent Auto 29.4 % (20-40); Mean Corpuscular HGB Conc 30.7 g/dl (31.0-36.0); Mean Corpuscular Hemoglobin 22.2 pg (27.0-33.0); Mean Corpuscular Volume 72.3 fL (80.0-98.0); Mean Platelet Volume 10.2 fL (9.4-12.4); Monocytes Absolute Auto 0.6 X10*3/uL (0.1-1.2); Monocytes Percent Auto 11.6 % (2-11); Neutrophils Absolute Auto 2.8 x10*3/uL (2.0-8.3); Neutrophils Percent Auto 52.9 % (45-73); Platelet Count 209 X10*3/uL (160-400); Red Blood Count 5.09 X10*6/uL (4.60-5.80); Red Cell Distribution Width 19.2 % (11.0-16.0); Retic HGB Equivalent 25.3 pg (30.0-35.0); Reticulocyte Percent 1.4 % (0.5-1.8); Reticulocytes Absolute 0.071 X10*6/uL (0.026-0.095); White Blood Count 5.2 X10*3/uL (4.8-10.8)
[2023-08-04 12:44] LABS: Creatinine Urine 16.02 mg/dL; Microalbum/Creatinine Ratio Ur 137.3 ug/mg cr (<30)
[2023-08-04 12:46] LABS: Alanine Aminotransferase 26 U/L (0-40); Albumin Level 4.1 g/dL (3.5-5.0); Alkaline Phosphatase 119 U/L (39-117); Anion Gap 11 (12-20); Aspartate Amino Transferase 25 U/L (5-37); Bilirubin Total 0.6 mg/dL (0.0-1.0); Blood Urea Nitrogen 21 mg/dL (9-16); Calcium 9.4 mg/dL (8.4-10.2); Carbon Dioxide 30 mmol/L (22-29); Chloride 105 mmol/L (96-108); Cholesterol 89 mg/dL (<200); Estimated Glomerular Filt Rate > 60; Glucose Random 141 mg/dL (60-115); HDL Cholesterol 35 mg/dL (>40); Iron 18 mcg/dL (45-160); LDL Cholesterol Calculated 36 mg/dL (<100); Magnesium 1.9 mg/dL (1.6-2.6); Percent Iron Saturation 5 % (15-50); Potassium 4.2 mmol/L (3.3-5.1); Sodium 142 mmol/L (135-145); Total Iron Binding Capacity 354 mcg/dL (228-428); Total Protein 6.6 g/dL (6.5-8.0); Triglycerides 94 mg/dL (<150); Unsaturated Iron Binding 336 ug/dL
[2023-08-04 12:56] LABS: Ferritin 8 ng/mL (20-250); Free T4 (Free Thyroxine) 0.99 ng/dL (0.71-1.85); Thyroid Stimulating Hormone 0.34 uIU/mL (0.32-4.0); Vitamin D 25-OH Total 54.6 ng/mL (>30)
[2023-08-04 13:06] LABS: Folate 12.5 ng/mL (> or = 4.0); Prostate Specific Antigen Scr 0.46 ng/mL (<0.05-4.0); Vitamin B12 477 pg/mL (200-900)
== END 2023-08-04 10:34 | disposition home or self-care (01) ==
LOC: HO.LAB 10:33
PROVIDERS: PCP Internal Medicine; Visit Provider Internal Medicine
DX: Z12.5 Encounter for screening for malignant neoplasm of prostate (principal); E11.65 Type 2 diabetes mellitus with hyperglycemia; E78.00 Pure hypercholesterolemia, unspecified; E55.9 Vitamin D deficiency, unspecified
CPT/HCPCS: 36415; 80053; 80061; 82043; 82306; 82570; 82607; 82728; 82746; 83540; 83735; 84153; 84439; 84443; 85025; 85045

== ENCOUNTER 2023-10-21 14:58 | Outpatient (AMB) | payer MEDICARE, SELFPAY ==
[2023-10-21 15:00] VITALS: BP 116/70; PULSE 78; BMI 29.8
--- NOTE | 2023-10-21 15:00 | A.OFFVIS_ITS ---
Vital Signs 10/21/23 15:00 Height 5 ft 7 in Weight 190 lb 0.615 oz BMI 29.8 BP 116/70 Blood Pressure Location Lt brachial Position Sitting Pulse 78 Intake Visit Reasons: 1 yr follow up Property Assessment Monitor Required: No Accompanied by: Spouse Allergies Influenza Virus Vaccines Allergy (Intermediate, Verified 08/03/23 13:59) Unknown Medication List - Last Reconciled 10/21/23 by Curt Martinez MD albuterol sulfate 90 mcg/actuation 2 puffs inhalation QID PRN alprazolam 0.25 mg PO BID PRN 90 days amlodipine 10 mg PO DAILY ascorbic acid (vitamin C) (Vitamin C) 500 mg PO DAILY aspirin (Adult Aspirin Regimen) 81 mg PO DAILY atorvastatin 80 mg PO BEDTIME 90 days blood pressure monitor As directed empagliflozin (Jardiance) 10 mg PO DAILY ferrous sulfate 324 mg PO DAILY isosorbide mononitrate ER 120 mg PO DAILY metformin 1,000 mg PO BID 90 days metoprolol succinate ER 25 mg PO DAILY nicotine 1 patch transdermal DAILY nicotine (polacrilex) 4 mg buccal Q4-8H PRN omeprazole 40 mg PO DAILY sertraline 50 mg PO DAILY 90 days spironolacton-hydrochlorothiaz 25-25 mg 1 tab PO DAILY HPI Comments Details: Ney returns for follow-up regarding coronary disease and aortic stenosis. He has multiple vascular risk factors including type 2 diabetes, hypertension, dyslipidemia. Due to shortness of breath, he underwent further workup, showing 2 vessel coronary artery disease including the LAD and RCA as well as severe aortic stenosis. Subsequently, he underwent coronary artery bypass surgery and aortic valve replacement in 2020. Since last seen, he states he is doing good. No new complaints. No angina or shortness of breath or in fact anything cardiac sounding. He states he is very active with no limitations whatsoever. He is planning to move to [place] coming weekend. He states he is packing and lifting heavy things and has no cardiac symptoms. [facility] Medical History Obesity (BMI 30-39.9) Anxiety and depression Asthma Bleeding duodenal ulcer Smoking Abnormal nuclear stress test Hypertensive urgency Actinic keratoses LFT elevation Essential hypertension Atherosclerotic cardiovascular disease Glaucoma Type 2 diabetes mellitus with hyperglycemia Obstructive sleep apnea Tobacco abuse CAD (coronary artery disease) Aortic stenosis Hypercholesterolemia Obesity Surgical History History of endoscopic gastrointestinal surgery (~01/29/23) Status post aortic valve replacement with bioprosthetic valve Status post aorto-coronary artery bypass graft History of lumbar surgery Aortic valve replaced Family History Father CVD (cardiovascular disease) Cerebral hemorrhage Mother Medical history unknown Brother Colon cancer Other Mental health disorder Substance use disorder Social History Household Members: Spouse and Children Housing: House Alcohol intake: current Alcohol intake frequency: holidays/special occasions only Patient Tobacco Use Status: Current everyday Tobacco user Tobacco use type: Cigarette Cigarette Packs Per Day: 0.5 Cigarettes Per Day: 10 Years Smoked: stopped 01/2020 e-Cigarette/Vaping Use: Never Used Second Hand Smoke Exposure: Yes service: No Current occupational status: employed Cognitive needs: No Hearing needs: No Vision needs: Yes (Glasses) Review of Systems Const Denies chills, Denies fatigue, Denies fever(s), Denies frequent falls, Denies weakness, Denies weight gain and Denies weight loss ENT Denies dizziness Card Denies chest pain, Denies leg edema, Denies lightheadedness, Denies palpitations, Denies dyspnea and Denies dyspnea on exertion Resp Denies cough, Denies dyspnea and Denies dyspnea on exertion GI Denies hematochezia Musc Denies abnormal gait, Denies muscle weakness, Denies numbness, Denies radiating pain into limb and Denies tingling Neuro Denies abnormal gait, Denies dizziness, Denies frequent falls, Denies numbness, Denies tingling and Denies weakness Endo Denies fatigue and Denies palpitations Physical Exam Vital Signs: Last Vital Signs Pulse 78 10/21/23 15:00 BP 116/70 10/21/23 15:00 BMI result Body Mass Index 29.8 Const General: comfortable and no acute distress Orientation/consciousness: patient oriented x3 HEENT Other: Unremarkable Head: Yes normal to inspection Neck Neck: Yes normal visual inspection Chest Chest palpation & inspection: normal inspection of the chest Resp Other: rare wheeze Cardio Palpation: normal PMI Heart sounds: S1 normal heart sound present, S2 normal heart sound present, no gallops, Murmur heart sound present systolic II/ and at the right sternal border and no rubs GI Palpation (GI): Soft to palpation Back/Spine/Pelvis Other: unremarkable Skin General skin exam: no rashes or lesions noted Neuro General: patient oriented x3 Extrem General: Yes normal to inspection Psych Mental Status: mental status grossly normal Office Procedures EKG Details: EKG with sinus rhythm at 78/Min; inferior as well as anterolateral downsloping ST with T inversions[place] [id number], Complete Assessment & Plan Assessment & Plan (1) Atherosclerotic cardiovascular disease: Code(s): I25.10 - Atherosclerotic heart disease of [place] coronary artery without angina pectoris Category: Medical Plan: Myocardial perfusion imaging study from 2021 shows mild intensity basal/mid lateral ischemia. Echocardiogram 2021 with preserved LVEF, 55-60% and basal inferior hypokinesis. Today's EKG shows inferior and anterolateral changes but not seen in the past. Could indicate progression of CAD. However, clinically he has got absolutely no symptoms. Additionally, he is leaving for [place] in a couple of days. Recommended that he sees a new mold repair technician locally and pursue further workup with repeat stress test and possibly another echocardiogram. In the interim, avoid strenuous physical activity and we discussed that today. If any chest pains, will need to seek emergency help. Otherwise, continue aggressive risk factor modification. For meds, continue aspirin, long-acting nitrates, statins. Last LDL is 36 mg/dL. (2) Status post aortic valve replacement with bioprosthetic valve: Code(s): Z95.3 - Presence of xenogenic heart valve Category: Surgical Plan: Normally function bioprosthetic aortic valve in the last echocardiogram. Continue aspirin. Infective endocarditis prophylaxis per protocol. (3) Essential hypertension: Code(s): I10 - Essential (primary) hypertension Category: Medical Plan: Stable. No changes. (4) Type 2 diabetes mellitus with unspecified complications: Code(s): E11.8 - Type 2 diabetes mellitus with unspecified complications Category: Medical Plan: On Jardiance, metformin. Last hemoglobin A1c is 8%. Less than optimal. (5) Smoking: Code(s): F17.200 - Nicotine dependence, unspecified, uncomplicated Category: Social Hx Plan: We have discussed smoking cessation numerous times but he is unfortunately still smoking. He is well aware of cardiovascular issues related to this. Again discussed today. Plan Patient is moving to [place] in the next couple of days and advised to find a new mold repair technician. Coding Level of Care Code Est Pt Level 4 (25694) Diagnoses Atherosclerotic cardiovascular disease I25.10 Status post aortic valve replacement with bioprosthetic valve Z95.3 Essential hypertension I10 Type 2 diabetes mellitus with unspecified complications E11.8 Smoking F17.200 CPT Codes EKG - CPT: [id number], Complete ([id number])
== END 2023-10-21 15:41 | disposition home or self-care (01) ==
LOC: HO.HCS 14:58
PROVIDERS: PCP Internal Medicine; Visit Provider Internal Medicine
DX: I25.10 Atherosclerotic heart disease of native coronary artery without angina pectoris (principal); Z95.3 Presence of xenogenic heart valve; I10 Essential (primary) hypertension; E11.8 Type 2 diabetes mellitus with unspecified complications; F17.200 Nicotine dependence, unspecified, uncomplicated
CPT/HCPCS: 93010; 99214

== ENCOUNTER → 2023-10-21 14:58 | Outpatient (BNVA) | payer MEDICARE, SELFPAY | PROVIDERS: PCP Internal Medicine; Visit Provider Internal Medicine | DX: I25.10 Atherosclerotic heart disease of native coronary artery without angina pectoris (principal); I10 Essential (primary) hypertension; E11.9 Type 2 diabetes mellitus without complications; F17.210 Nicotine dependence, cigarettes, uncomplicated; Z95.1 Presence of aortocoronary bypass graft; Z95.3 Presence of xenogenic heart valve | CPT/HCPCS: 93005; 99212 ==